=== PATIENT | female | born 1990 | race Caucasian/White ===

== ENCOUNTER → 2022-07-03 15:30 | Outpatient (CLI) | payer OTHER, SELFPAY ==
--- NOTE | ~2022-07-03 | US_ITS ---
EXAMINATION: US OB <= 14 weeks fetus DATE: 07/03/2022 15:58 INDICATION: Uncertain dates during likely first trimester TECHNIQUE: Real-time pelvic ultrasound utilizing transabdominal probe was performed. The katelyn sanchez radiologist was not present for the study. COMPARISON: None. FINDINGS: The uterus measures 11.9 x 5.9 x 8.6 cm. There is a poorly visualized intrauterine gestational sac. A yolk sac and pole are identified. The crown rump length measures 3.5 cm, which correlates wit h an estimated gestational age of 10 weeks and 3 days. heart motion is identified measuring 179 beats per minute (bpm) by M-mode Doppler. The right ovary measures 3.7 x 2.2 x 3.2 cm. The left ovary is not visualized. There is no free fluid in the pelvis. IMPRESSION: 1. Single living fetus with heart rate of 179 bpm. 2. Gestational age by ultrasound of 10 weeks 3 day(s) +/- 7 day(s) with ultrasound estimated date of delivery (WAI) of 01/26/2023. Reviewed, dictated and finalized at location A. IMPRESSION: 1. Single living fetus with heart rate of 179 bpm. 2. Gestational age by ultrasound of 10 weeks 3 day(s) +/- 7 day(s) with ultras ound estimated date of delivery (WAI) of 01/26/2023.
== END ==
PROVIDERS: PCP Student in an Organized Health Care Education/Training Program; Visit Provider Advanced Practice Midwife
DX: Z36.9 Encounter for antenatal screening, unspecified (principal); Z3A.10 10 weeks gestation of pregnancy
CPT/HCPCS: 76801

== ENCOUNTER → 2022-09-14 15:15 | Outpatient (CLI) | payer OTHER, SELFPAY ==
--- NOTE | ~2022-09-14 | US_ITS ---
EXAMINATION: US OB /maternal detail DATE: 09/14/2022 16:12 INDICATION: survey TECHNIQUE: Multiple obstetric sonographic images performed. FINDINGS: No prior studies for comparison. There is a single living fetus in vertex presentation. The placenta is posterior without placenta pr evia. Placental margin to the cervix is 6.7 cm. Amniotic fluid volume is subjectively normal. cardiac activity and movement is noted with a heart rate of 149 beats per minute. The following anatomy was identified as normal: 3 vessel cord cord insertion kidneys urinary bladder stomach spine diaphragm ventricles The ventricles, cerebellum, nuchal fold, upper lip and four-chamber heart are not adequately visualiz ed. The following biometric data were obtained: BPD: 48mm corresponds to gestational age 20 weeks 4 days. Head circumference: 179 mm corresponds to gestational age 20 weeks 2 days. Abdominal circumference: 158 mm corresponds to gestational age 20 weeks 6 days. Femur length: 30 mm corresponds to gestational age 19 weeks 3 days. Head circumference to abdominal circumference ratio: 1.13 (normal range for expected gestational age is 1.07-1.25). Estimated weight: 341 grams +/- 51 grams using Hadlock method, 16.5%. IMPRESSION: 1: Single living intrauterine with an estimated gestational age of 20weeks 6days by initial ultrasound measurements, with an EDC of 01/26/2023 in vertex presentation. 2. Unremarkable limited survey. Recommend follow-up examination for evaluation of the ventricl es, cerebellum, nuchal fold, upper lip and four-chamber heart. Reviewed, dictated and finalized at location A. NESS ASSISTANT IMPRESSION: 1: Single living intrauterine with an estimated gestational age of 20 weeks 6days by initial ultrasound measurements, with an EDC of 01/26/2023 in delvin ebonie presentation. 2. Unremarkable limited survey. Recommend follow-up examination for eval uation of the ventricles, cerebellum, nuchal fold, upper lip and four-chamber h eart.
== END ==
PROVIDERS: PCP Student in an Organized Health Care Education/Training Program; Visit Provider Advanced Practice Midwife
DX: Z36.9 Encounter for antenatal screening, unspecified (principal); Z3A.20 20 weeks gestation of pregnancy
CPT/HCPCS: 76805

== ENCOUNTER → 2022-10-12 15:21 | Outpatient (CLI) | payer OTHER, SELFPAY ==
--- NOTE | ~2022-10-12 | US_ITS ---
EXAMINATION: US OB follow up DATE: 10/12/2022 16:06 INDICATION: survey follow-up. Size greater than dates. TECHNIQUE: Real-time transabdominal obstetric ultrasound. FINDINGS: Comparison to multiple prior studies sequentially, with oldest reviewed study dated 022. There is a single living fetus in vertex presentation. The placenta is posterior without placenta pr evia. Placental margin is 7.8 cm to the cervix. cardiac activity and movement is noted with a heart rate of 150 beats per minute. T he amniotic fluid volume is subjectively normal. Limited survey demonstrates normal intracranial stru ctures, nuchal fold, upper lip and four-chamber heart. The following biometric data were obtained: BPD: 62mm corresponds to gestational age 25 weeks 2 days. Head circumference: 230mm corresponds to gestational age 25 weeks 0 days. Abdominal circumference: 196mm corresponds to gestational age 24 weeks 2 days. Femur length: 41mm corresponds to gestational age 23 weeks 3 days. Estimated weight: 657grams +/- 99grams, 12.9%. IMPRESSION: 1. Single living fetus in presentation with an estimated gestational age of 24 weeks 6 days by init itial ultrasound. EDC by initial ultrasound is 01/26/2023. 2. Normal limited survey. Reviewed, dictated and finalized at location A. UNITY MARKETING MANAGER IMPRESSION: 1. Single living fetus in presentation with an estimated gestational age of 2 4 weeks 6 days by inititial ultrasound. EDC by initial ultrasound is 01/26/2023. 2. Normal limited survey.
== END ==
PROVIDERS: PCP Student in an Organized Health Care Education/Training Program; Visit Provider Obstetrics & Gynecology Gynecology
DX: O36.63X0 Maternal care for excessive fetal growth, third trimester, not applicable or unspecified (principal); Z3A.00 Weeks of gestation of pregnancy not specified
CPT/HCPCS: 76816

== ENCOUNTER 2022-11-07 13:16 | Outpatient (RCR) | payer OTHER, SELFPAY ==
[2022-11-07 14:32] LABS: Basophils Percent Auto 0.1 % (0.2-1.2); Eosinophils Percent Auto 0.5 % (0-4.4); Hematocrit 36.3 % (37.0-47.0); Hemoglobin 11.7 g/dL (12.0-15.0); Immature Granulocyte Absolute 0.03 K/mm3 (0.00-0.031); Immature Granulocyte Percent A 0.4 % (0-0.5); Lymphocytes Absolute Auto 1.38 K/mm3 (0.9-3.2); Lymphocytes Percent Auto 16.4 % (18.3-44.2); Mean Corpuscular HGB Conc 32.2 g/dl (32-36); Mean Corpuscular Volume 90.1 fl (80-100); Mean Platelet Volume 10.2 fl (7.4-10.4); Monocytes Absolute Auto 0.4 K/mm3 (0.1-0.6); Monocytes Percent Auto 4.2 % (2.6-8.5); Neutrophils Absolute Auto 6.6 K/mm3 (1.3-6.7); Neutrophils Percent Auto 78.4 % (45.5-73.1); Platelet Count Result 146 k/mm3 (150-375); Red Blood Count 4.03 M/mm3 (4.2-5.4); Red Cell Distribution Width 14.1 % (11.5-14.5); White Blood Count 8.4 K/mm3 (4.5-10.0)
[2022-11-07 14:42] LABS: Alanine Aminotransferase 16 U/L (6-35); Albumin Level 3.3 g/dL (3.5-5.1); Alkaline Phosphatase 78 U/L (38-126); Anion Gap 2 mmol/L (8-16); Aspartate Amino Transferase 15 U/L (14-36); Bilirubin,Total 0.3 mg/dL (0.2-1.3); Blood Urea Nitrogen 4 mg/dL (7-17); Calcium 8.3 mg/dL (8.4-10.2); Carbon Dioxide 27 mmol/L (22-30); Chloride 104 mmol/L (98-107); Estimated Glomerular Filt Rate > 60; Glucose 139 mg/dL (65-110); Potassium 3.9 mmol/L (3.4-5.0); Sodium 133 mmol/L (137-145); Uric Acid 2.4 mg/dL (2.5-7.5)
[2022-11-07 14:45] LABS: Creatinine Urine 155.5 mg/dL; Total Protein Urine Random 13 mg/dL; Ur Ttl Prot Creatinine Ratio 0.08 mg/mg (0-0.20)
[2022-11-07 14:50] VITALS: BP 139/84; PULSE 90
--- NOTE | 2022-11-07 14:59 | PM.OBTRLD ---
OB - Triage/Final Diagnosis Visit Information Date of evaluation: 11/07/22 Reason for evaluation: decreased movement Comments/Additional reasons for admission: I have assessed the risk for this patient, Estefania Navarro, and determined that she would benefit from observation care. Pt had 2 mild range BPs followed by 3 normal range BPs. Preeclamsia labs WNL. Continue checking BPs 2 x day at home and continue preeclampsia precautions. Evaluation Laboratory results: Laboratory Tests 11/07/22 11/07/22 11/07/22 14:19 14:19 14:19 WBC 8.4 RBC 4.03 L Hgb 11.7 L Hct 36.3 L MCV 90.1 MCH 29.0 MCHC 32.2 RDW 14.1 Plt Count 146 L MPV 10.2 Immature Gran % (Auto) 0.4 Neut % (Auto) 78.4 H Lymph % (Auto) 16.4 L [place] % (Auto) 4.2 Eos % (Auto) 0.5 Baso % (Auto) 0.1 L Lymph # (Auto) 1.38 [place] # (Auto) 0.4 Eos # (Auto) 0.0 Baso # (Auto) 0.0 Abs Immat Gran (auto) 0.03 Absolute Neuts (auto) 6.6 Absolute Nucleated RBC 0.0 Nucleated RBC % 0.0 Sodium 133 L Potassium 3.9 Chloride 104 Carbon Dioxide 27 Anion Gap 2 L BUN 4 L Creatinine 0.40 L Estim Creat Clear Calc Not Reportable Estimated GFR > 60 Glucose 139 H Uric Acid 2.4 L Calcium 8.3 L Total Bilirubin 0.3 AST 15 ALT 16 Alkaline Phosphatase 78 Total Protein 6.0 L Albumin 3.3 L U Random Total Protein 13 Urine Creatinine 155.5
== END 2023-01-26 15:06 | disposition home or self-care (01) ==
LOC: ANHOBOP 13:16
PROVIDERS: Advanced Practice Midwife; PCP Student in an Organized Health Care Education/Training Program; Visit Provider Obstetrics & Gynecology
DX: O36.8120 Decreased fetal movements, second trimester, not applicable or unspecified (principal); Z3A.27 27 weeks gestation of pregnancy
CPT/HCPCS: 36415; 59025; 80053; 82570; 84156; 84550; 85025

== ENCOUNTER → 2022-12-08 12:54 | Outpatient (CLI) | payer OTHER, SELFPAY ==
--- NOTE | ~2022-12-08 | US_ITS ---
EXAMINATION: US OB follow up DATE: 12/08/2022 13:25 INDICATION: Size greater than dates during third trimester TECHNIQUE: Real-time ultrasound of the pelvis was performed. The interpreting radiologist was not pre sent for the study. COMPARISON: 10/12/2022 FINDINGS: There is a single living fetus in vertex presentation. The placenta is posterior and 7.5 cm from the internal cervical os. cardiac activity and movement are noted. heart rate is 133 beats per minute (bpm). The amniotic fluid index is 10.4 cm which is normal (normal range: 8. 3 cm to 24.5 cm). The following biometric data were obtained: Biparietal diameter (BPD): 8.7 cm; head circumference (HC): 31.3 cm; abdominal circumference (AC): 29 .0 cm; femur length (FL): 6.2 cm. These measurements are concordant. Estimated weight is 2122 g +/- 318 g, which correlates with the 44th percentile when 01/26/2023 is used as estimated date of delivery. As single measurements, these parameters are each equal to the following estimated gestational ages w ith ranges of +/- 2 standard deviations: BPD: 35 weeks 0 days ( 31 weeks 6 days - 38 weeks 0 days). HC: 35 weeks 1 days ( 32 weeks 1 days - 38 weeks 0 days). AC: 33 weeks 0 days ( 30 weeks 1 days - 36 weeks 0 days). FL: 32 weeks 0 days ( 29 weeks 0 days - 35 weeks 0 days). estimated gestational age based solely on measurements from this exam is 33 weeks 6 days +/- 2 weeks 3 days. IMPRESSION: 1. Single living fetus in vertex presentation. 2. Normal amniotic fluid index. 3. Estimated weight is 2122 g +/- 318 g, which correlates with the 44th percentile when 01/27/20 23 is used as estimated date of delivery. Reviewed, dictated and finalized at location F. COM ENGINEER IMPRESSION: 1. Single living fetus in vertex presentation. 2. Normal amniotic fluid index. 3. Estimated weight is 2122 g +/- 318 g, which correlates with the 44th p ercentile when 01/26/2023 is used as estimated date of delivery.
== END ==
PROVIDERS: PCP Student in an Organized Health Care Education/Training Program; Visit Provider Obstetrics & Gynecology Gynecology
DX: O36.63X0 Maternal care for excessive fetal growth, third trimester, not applicable or unspecified (principal); Z3A.33 33 weeks gestation of pregnancy
CPT/HCPCS: 76816

== ENCOUNTER → 2022-12-28 15:32 | Outpatient (CLI) | payer OTHER, SELFPAY ==
--- NOTE | ~2022-12-28 | US_ITS ---
EXAMINATION: US OB follow up DATE: 12/28/2022 15:54 INDICATION: Size greater than dates during third trimester TECHNIQUE: Real-time ultrasound of the pelvis was performed. The interpreting radiologist was not pre sent for the study. COMPARISON: 12/08/2022 FINDINGS: There is a single living fetus in vertex presentation. The placenta is posterior. car diac activity and movement are noted. heart rate is 114 beats per minute (bpm). The amnio tic fluid index is 15.5 cm which is normal (normal range: 7.9 cm to 24.9 cm). The following biometric data were obtained: Biparietal diameter (BPD): 8.9 cm; head circumference (HC): 32.0 cm; abdominal circumference (AC): 31 .4 cm; femur length (FL): 6.8 cm. These measurements are concordant. Estimated weight is 2687 g +/- 402 g, which correlates with the 39th percentile when 01/26/2023 is used as estimated date of delivery. As single measurements, these parameters are each equal to the following estimated gestational ages w ith ranges of +/- 2 standard deviations: BPD: 36 weeks 2 days ( 33 weeks 1 days - 39 weeks 3 days). HC: 36 weeks 1 days ( 33 weeks 3 days - 38 weeks 6 days). AC: 35 weeks 3 days ( 32 weeks 3 days - 38 weeks 2 days). FL: 35 weeks 1 days ( 32 weeks 1 days - 38 weeks 0 days). estimated gestational age based solely on measurements from this exam is 35 weeks 5 days +/- 2 weeks 4 days. IMPRESSION: 1. Single living fetus in vertex presentation. 2. Normal amniotic fluid index. 3. Estimated weight is 2687 g +/- 402 g, which correlates with the 39th percentile when 01/27/20 23 is used as estimated date of delivery. Reviewed, dictated and finalized at location B. IMPRESSION: 1. Single living fetus in vertex presentation. 2. Normal amniotic fluid index. 3. Estimated weight is 2687 g +/- 402 g, which correlates with the 39th p ercentile when 01/26/2023 is used as estimated date of delivery.
== END ==
PROVIDERS: PCP Student in an Organized Health Care Education/Training Program; Visit Provider Obstetrics & Gynecology Gynecology
DX: O36.63X0 Maternal care for excessive fetal growth, third trimester, not applicable or unspecified (principal); Z3A.35 35 weeks gestation of pregnancy
CPT/HCPCS: 76816

== ENCOUNTER 2023-01-05 11:55 | Outpatient (CLI) | payer OTHER, SELFPAY ==
[2023-01-05 12:28] LABS: Basophils Percent Auto 0.2 % (0.2-1.2); Eosinophils Percent Auto 0.4 % (0-4.4); Hematocrit 40.5 % (37.0-47.0); Hemoglobin 13.3 g/dL (12.0-15.0); Immature Granulocyte Absolute 0.03 K/mm3 (0.00-0.031); Immature Granulocyte Percent A 0.3 % (0-0.5); Lymphocytes Absolute Auto 1.68 K/mm3 (0.9-3.2); Lymphocytes Percent Auto 16.7 % (18.3-44.2); Mean Corpuscular HGB Conc 32.8 g/dl (32-36); Mean Corpuscular Hemoglobin 29.8 pg (26-34); Mean Corpuscular Volume 90.8 fl (80-100); Mean Platelet Volume 11.1 fl (7.4-10.4); Monocytes Absolute Auto 0.4 K/mm3 (0.1-0.6); Monocytes Percent Auto 4.2 % (2.6-8.5); Neutrophils Absolute Auto 7.9 K/mm3 (1.3-6.7); Neutrophils Percent Auto 78.2 % (45.5-73.1); Platelet Count Result 177 k/mm3 (150-375); Red Blood Count 4.46 M/mm3 (4.2-5.4); Red Cell Distribution Width 13.9 % (11.5-14.5); White Blood Count 10.1 K/mm3 (4.5-10.0)
[2023-01-05 12:30] VITALS: BP 135/88; PULSE 80
[2023-01-05 12:34] LABS: Appearance Urine Cloudy (Clear); Bacteria Urine 4+ /hpf; Bilirubin Urine Negative (Negative); Blood Urine Negative (Negative); Color Urine Dark Yellow (Yellow); Creatinine Urine 155.5 mg/dL; Glucose Urine UA Negative (Negative); Ketones Urine 1+ mg/dL (Negative); Leukocyte Esterase Ur 1+ LEU/UL (NEGATIVE); Nitrate Urine Negative (Negative); Protein Urine Trace mg/dL (Negative); RBC Urine 0-2 /hpf (0-2); Specific Grav Ur 1.018 (1.001-1.035); Squamous Epithelial Cell Urine Few /hpf (Few); Total Protein Urine Random 10 mg/dL; Ur Ttl Prot Creatinine Ratio 0.06 mg/mg (0-0.20); WBC Urine 21-50 /hpf (0-3); pH Urine 7.5 (5.0-9.0)
[2023-01-05 12:38] LABS: Alanine Aminotransferase 26 U/L (6-35); Albumin Level 3.5 g/dL (3.5-5.1); Alkaline Phosphatase 179 U/L (38-126); Anion Gap 7 mmol/L (8-16); Aspartate Amino Transferase 24 U/L (14-36); Bilirubin,Total 0.5 mg/dL (0.2-1.3); Blood Urea Nitrogen 5 mg/dL (7-17); Calcium 8.9 mg/dL (8.4-10.2); Carbon Dioxide 22 mmol/L (22-30); Chloride 104 mmol/L (98-107); Estimated Glomerular Filt Rate > 60; Glucose 75 mg/dL (65-110); Potassium 3.9 mmol/L (3.4-5.0); Sodium 133 mmol/L (137-145); Uric Acid 4.1 mg/dL (2.5-7.5)
[2023-01-05 12:42] LABS: Add Urine Microscopic? YES
[2023-01-05 12:45] VITALS: BP 145/93; PULSE 81
[2023-01-05 13:00] VITALS: BP 152/101; PULSE 85
[2023-01-05 13:03] VITALS: BP 141/89; PULSE 82
[2023-01-05 13:20] VITALS: BP 135/88; PULSE 80
[2023-01-06 12:54] VITALS: BMI 39.9
== END 2023-01-05 13:30 | disposition home or self-care (01) ==
LOC: ANHOBOP 12:00 → ANHOBPP 12:04
PROVIDERS: PCP Student in an Organized Health Care Education/Training Program; Visit Provider Obstetrics & Gynecology Gynecology
DX: O13.9 Gestational [pregnancy-induced] hypertension without significant proteinuria, unspecified trimester (principal); Z3A.00 Weeks of gestation of pregnancy not specified
CPT/HCPCS: 36415; 59025; 80053; 81001; 81050; 82570; 82575; 84156; 84550; 85025; 87086; 99199

== ENCOUNTER 2023-01-06 12:50 | Outpatient (NON) | payer OTHER, SELFPAY ==
[2023-01-06 13:35] LABS: Collection Time Urine 24 HOURS
[2023-01-06 13:36] LABS: Patient Weight 218 Lbs; Total Volume 24 Hour Urine 750 ml
[2023-01-06 14:17] LABS: Creatinine Urine 150.4 mg/dL; Total Protein Urine 24 Hr 142 mg/24hr (28-141); Total Protein Urine Random 19 mg/dL
[2023-01-06 14:25] LABS: Creatinine Clearance Urine 137.2 ml/min (75-125); Serum Creat 0.5
== END 2023-01-06 12:51 | disposition home or self-care (01) ==
LOC: ANHOBOP 13:24
PROVIDERS: PCP Student in an Organized Health Care Education/Training Program; Visit Provider Obstetrics & Gynecology Gynecology
DX: Z34.90 Encounter for supervision of normal pregnancy, unspecified, unspecified trimester (principal); Z3A.00 Weeks of gestation of pregnancy not specified
CPT/HCPCS: 81050; 82575; 84156

== ENCOUNTER 2023-01-09 17:50 | Inpatient (IN) | payer OTHER, SELFPAY ==
[2023-01-09] VITALS (14 sets, daily range): BP systolic 143–164; BP diastolic 89–108; PULSE 79–95; TEMP 36.4; O2SAT 97–99
--- NOTE | ~2023-01-09 | US_ITS ---
EXAMINATION: US OB follow up, US umbilical doppler DATE: 01/10/2023 07:44 INDICATION: cardiac decelerations. Assess growth and umbilical Dopplers. Estimate w eight TECHNIQUE: Real-time ultrasound of the pelvis was performed. The interpreting radiologist was not pre sent for the study. COMPARISON: 12/28/2022 FINDINGS: There is a single living fetus in vertex presentation. The placenta is posterior. heart rate i s 142 beats per minute (bpm). The amniotic fluid index is 8.2 cm, which is normal (5th%-95%: 7.5-24. 4 cm at 37 weeks estimated gestational age). The following biometric data were obtained: BPD: 9.0 cm -> 36 weeks 2 days Head circumference: 32.7 cm -> 37 weeks 1 days Abdominal circumference: 33.3 cm -> 37 weeks 2 days Femur length: 6.9 cm -> 35 weeks 3 days These measurements are concordant. Head circumference to abdominal circumference ratio: 0.98 (normal range 0.92-1.06). Estimated weight: 2996 g (+/-) 449 g or 6 lbs. 10 oz. (+/-) 1 lbs. 0 oz. The umbilical artery demonstrates a peak systolic and diastolic velocity ratio of 2.4-2.7 at the fetu s, 2.0-2.1 in the mid cord and 2.1-2.3 near the placenta (5th%-95%: 1.94-3.18 at 37 weeks). IMPRESSION: 1. Single living fetus in vertex presentation with heart rate of 142 bpm. 2. Normal amniotic fluid index of 8.2 cm. 3. Estimated weight is 33rd percentile by Hadlock criteria when 01/26/2023 is used as the estima kevyn date of delivery (WAI). Please correlate with clinical information or earlier ultrasounds for mos t accurate WAI. 3. Mean umbilical arterial Doppler systolic to diastolic velocity ratio of 2.3 which is within normal limits. Reviewed, dictated and finalized at location A. IMPRESSION: 1. Single living fetus in vertex presentation with heart rate of 142 bpm. 2. Normal amniotic fluid index of 8.2 cm. 3. Estimated weight is 33rd percentile by Hadlock criteria when 01/26/2023 is used as the estimated date of delivery (WAI). Please correlate with clinica l information or earlier ultrasounds for most accurate WAI. 3. Mean umbilical arterial Doppler systolic to diastolic velocity ratio of 2.3 which is within normal limits.
[2023-01-09 17:08] LABS: Appearance Urine Cloudy (Clear); Bacteria Urine None Seen /hpf; Bilirubin Urine Negative (Negative); Blood Urine Negative (Negative); Color Urine Yellow (Yellow); Glucose Urine UA Negative (Negative); Ketones Urine Negative (Negative); Leukocyte Esterase Ur Negative LEU/UL (NEGATIVE); Nitrate Urine Negative (Negative); Non Pathogenic Casts 0-2; Protein Urine Negative (Negative); RBC Urine 0-2 /hpf (0-2); Specific Grav Ur 1.013 (1.001-1.035); Squamous Epithelial Cell Urine None seen /hpf (Few); Urobilinogen Urine 0.2 mg/dL (<2.0); WBC Urine 0-5 /hpf (0-3); pH Urine 7.5 (5.0-9.0)
[2023-01-09 17:09] LABS: Add Urine Microscopic? YES
[2023-01-09 17:10] LABS: Basophils Percent Auto 0.2 % (0.2-1.2); Eosinophils Percent Auto 0.4 % (0-4.4); Hematocrit 39.8 % (37.0-47.0); Hemoglobin 13.2 g/dL (12.0-15.0); Immature Granulocyte Absolute 0.05 K/mm3 (0.00-0.031); Immature Granulocyte Percent A 0.5 % (0-0.5); Lymphocytes Absolute Auto 1.66 K/mm3 (0.9-3.2); Lymphocytes Percent Auto 16.3 % (18.3-44.2); Mean Corpuscular HGB Conc 33.2 g/dl (32-36); Mean Corpuscular Hemoglobin 30.1 pg (26-34); Mean Corpuscular Volume 90.7 fl (80-100); Mean Platelet Volume 11.3 fl (7.4-10.4); Monocytes Absolute Auto 0.5 K/mm3 (0.1-0.6); Monocytes Percent Auto 4.7 % (2.6-8.5); Neutrophils Absolute Auto 7.9 K/mm3 (1.3-6.7); Neutrophils Percent Auto 77.9 % (45.5-73.1); Platelet Count Result 172 k/mm3 (150-375); Red Blood Count 4.39 M/mm3 (4.2-5.4); Red Cell Distribution Width 13.9 % (11.5-14.5); White Blood Count 10.2 K/mm3 (4.5-10.0)
[2023-01-09 17:11] LABS: Alanine Aminotransferase 27 U/L (6-35); Albumin Level 3.5 g/dL (3.5-5.1); Alkaline Phosphatase 174 U/L (38-126); Anion Gap 4 mmol/L (8-16); Aspartate Amino Transferase 27 U/L (14-36); Bilirubin,Total 0.5 mg/dL (0.2-1.3); Blood Urea Nitrogen 7 mg/dL (7-17); Calcium 8.8 mg/dL (8.4-10.2); Carbon Dioxide 22 mmol/L (22-30); Chloride 106 mmol/L (98-107); Estimated Glomerular Filt Rate > 60; Glucose 74 mg/dL (65-110); Potassium 3.9 mmol/L (3.4-5.0); Sodium 132 mmol/L (137-145); Uric Acid 4.1 mg/dL (2.5-7.5)
[2023-01-09 17:34] LABS: Creatinine Urine 83.9 mg/dL; Total Protein Urine Random 11 mg/dL; Ur Ttl Prot Creatinine Ratio 0.13 mg/mg (0-0.20)
[2023-01-09] MEDS: NIFEdipine 30 MG TAB.ER.24 PO (18:13)
[2023-01-10] VITALS (46 sets, daily range): BP systolic 132–173; BP diastolic 81–110; PULSE 78–151; RESP 16–18; TEMP 36.6–36.7; O2SAT 87–100; BMI 39.5
--- NOTE | 2023-01-10 07:34 | PM.OBPNVD ---
OB - PN: Subj Subjective Date/time seen: 01/10/23 07:34 Interval history: pt in ultrasound at this time. OB - PN: Obj Data Labs 01/09/23 16:51 01/09/23 16:51 Labs: Laboratory Results - last 24 hr 01/09/23 01/09/23 01/09/23 16:51 16:51 16:51 WBC 10.2 H RBC 4.39 Hgb 13.2 Hct 39.8 MCV 90.7 MCH 30.1 MCHC 33.2 RDW 13.9 Plt Count 172 MPV 11.3 H Immature Gran % (Auto) 0.5 Neut % (Auto) 77.9 H Lymph % (Auto) 16.3 L [place] % (Auto) 4.7 Eos % (Auto) 0.4 Baso % (Auto) 0.2 Lymph # (Auto) 1.66 [place] # (Auto) 0.5 Eos # (Auto) 0.0 Baso # (Auto) 0.0 Abs Immat Gran (auto) 0.05 H Absolute Neuts (auto) 7.9 H Absolute Nucleated RBC 0.0 Nucleated RBC % 0.0 Sodium Potassium Chloride Carbon Dioxide Anion Gap BUN Creatinine Estim Creat Clear Calc Estimated GFR Glucose Uric Acid Calcium Total Bilirubin AST ALT Alkaline Phosphatase Total Protein Albumin Urine Color Yellow Urine Appearance Cloudy H Urine pH 7.5 Ur Specific [place] 1.013 Urine Protein Negative Urine Glucose (UA) Negative Urine Ketones Negative Ur Blood (Man) Negative Urine Nitrate Negative Urine Bilirubin Negative Urine Urobilinogen 0.2 Ur Leukocyte Esterase Negative Urine RBC 0-2 Urine WBC 0-5 Ur Squamous Epith Cells None seen Urine Bacteria None seen Urine Casts 0-2 U Random Total Protein 11 Urine Creatinine 83.9 Protein/Creat Ratio 2 0.13 01/09/23 16:51 WBC RBC Hgb Hct MCV MCH MCHC RDW Plt Count MPV Immature Gran % (Auto) Neut % (Auto) Lymph % (Auto) [place] % (Auto) Eos % (Auto) Baso % (Auto) Lymph # (Auto) [place] # (Auto) Eos # (Auto) Baso # (Auto) Abs Immat Gran (auto) Absolute Neuts (auto) Absolute Nucleated RBC Nucleated RBC % Sodium 132 L Potassium 3.9 Chloride 106 Carbon Dioxide 22 Anion Gap 4 L BUN 7 Creatinine 0.60 L Estim Creat Clear Calc Not Reportable Estimated GFR > 60 Glucose 74 Uric Acid 4.1 Calcium 8.8 Total Bilirubin 0.5 AST 27 ALT 27 Alkaline Phosphatase 174 H Total Protein 7.0 Albumin 3.5 Urine Color Urine Appearance Urine pH Ur Specific [place] Urine Protein Urine Glucose (UA) Urine Ketones Ur Blood (Man) Urine Nitrate Urine Bilirubin Urine Urobilinogen Ur Leukocyte Esterase Urine RBC Urine WBC Ur Squamous Epith Cells Urine Bacteria Urine Casts U Random Total Protein Urine Creatinine Protein/Creat Ratio 2 OB - PN A/P Time Spent With Patient Time: Total time spent is greater than 50% in coordination of care (as documented) at patient's floor/unit and/or counseling patient:
--- NOTE | 2023-01-10 08:01 | PM.OBPNVD ---
OB - PN: Subj Subjective Date/time seen: 01/10/23 0745 Interval history: pt back from US. Resting in bed. She denies HERRERA, visual changes, RUQ pain, or change in edema. Patient comments: no complaints OB - PN: Obj Data Labs 01/09/23 16:51 01/09/23 16:51 Labs: Laboratory Results - last 24 hr 01/09/23 01/09/23 01/09/23 16:51 16:51 16:51 WBC 10.2 H RBC 4.39 Hgb 13.2 Hct 39.8 MCV 90.7 MCH 30.1 MCHC 33.2 RDW 13.9 Plt Count 172 MPV 11.3 H Immature Gran % (Auto) 0.5 Neut % (Auto) 77.9 H Lymph % (Auto) 16.3 L [place] % (Auto) 4.7 Eos % (Auto) 0.4 Baso % (Auto) 0.2 Lymph # (Auto) 1.66 [place] # (Auto) 0.5 Eos # (Auto) 0.0 Baso # (Auto) 0.0 Abs Immat Gran (auto) 0.05 H Absolute Neuts (auto) 7.9 H Absolute Nucleated RBC 0.0 Nucleated RBC % 0.0 Sodium Potassium Chloride Carbon Dioxide Anion Gap BUN Creatinine Estim Creat Clear Calc Estimated GFR Glucose Uric Acid Calcium Total Bilirubin AST ALT Alkaline Phosphatase Total Protein Albumin Urine Color Yellow Urine Appearance Cloudy H Urine pH 7.5 Ur Specific [place] 1.013 Urine Protein Negative Urine Glucose (UA) Negative Urine Ketones Negative Ur Blood (Man) Negative Urine Nitrate Negative Urine Bilirubin Negative Urine Urobilinogen 0.2 Ur Leukocyte Esterase Negative Urine RBC 0-2 Urine WBC 0-5 Ur Squamous Epith Cells None seen Urine Bacteria None seen Urine Casts 0-2 U Random Total Protein 11 Urine Creatinine 83.9 Protein/Creat Ratio 2 0.13 01/09/23 16:51 WBC RBC Hgb Hct MCV MCH MCHC RDW Plt Count MPV Immature Gran % (Auto) Neut % (Auto) Lymph % (Auto) [place] % (Auto) Eos % (Auto) Baso % (Auto) Lymph # (Auto) [place] # (Auto) Eos # (Auto) Baso # (Auto) Abs Immat Gran (auto) Absolute Neuts (auto) Absolute Nucleated RBC Nucleated RBC % Sodium 132 L Potassium 3.9 Chloride 106 Carbon Dioxide 22 Anion Gap 4 L BUN 7 Creatinine 0.60 L Estim Creat Clear Calc Not Reportable Estimated GFR > 60 Glucose 74 Uric Acid 4.1 Calcium 8.8 Total Bilirubin 0.5 AST 27 ALT 27 Alkaline Phosphatase 174 H Total Protein 7.0 Albumin 3.5 Urine Color Urine Appearance Urine pH Ur Specific [place] Urine Protein Urine Glucose (UA) Urine Ketones Ur Blood (Man) Urine Nitrate Urine Bilirubin Urine Urobilinogen Ur Leukocyte Esterase Urine RBC Urine WBC Ur Squamous Epith Cells Urine Bacteria Urine Casts U Random Total Protein Urine Creatinine Protein/Creat Ratio 2 OB - PN A/P Assessment and Plan (1) Elevated blood pressure affecting in third trimester, antepartum: Code(s): O16.3 - Unspecified maternal hypertension, third trimester Status: Acute Assessment and Plan: neg proteinuria but 24 hour urine pending. no severe ranges. plan BPs q 4 while awake repeat CBC, CMP pending. FHT baseline 125 (135 at times), mod variability, +accels. CAT1 Time Spent With Patient Time: Total time spent is greater than 50% in coordination of care (as documented) at patient's floor/unit and/or counseling patient: Review of Systems Review of Systems: All systems reviewed & are unremarkable except as noted in HPI and below Exam Const: General: cooperative, healthy appearing, comfortable and alert Orientation/consciousness: patient oriented x3 Limitations: no limitations HENMT: Head: normal to inspection Chest: Chest palpation & inspection: normal inspection of the chest Resp: Effort & Inspection: normal respiratory effort Auscultation: clear to auscultation bilaterally GI: Inspection: normal to inspection Skin: General skin exam: normal color Extrem: General: edema (1+ to BLE, 2+ reflexes, neg clonus) Psych: Appearance: grossly normal Mental
[2023-01-10 08:20] LABS: Hematocrit 40.7 % (37.0-47.0); Hemoglobin 13.4 g/dL (12.0-15.0); Mean Corpuscular HGB Conc 32.9 g/dl (32-36); Mean Corpuscular Hemoglobin 29.8 pg (26-34); Mean Corpuscular Volume 90.4 fl (80-100); Mean Platelet Volume 11.1 fl (7.4-10.4); Platelet Count Result 174 k/mm3 (150-375); Red Cell Distribution Width 14.1 % (11.5-14.5); White Blood Count 9.5 K/mm3 (4.5-10.0)
[2023-01-10 08:29] LABS: Alanine Aminotransferase 27 U/L (6-35); Albumin Level 3.5 g/dL (3.5-5.1); Alkaline Phosphatase 181 U/L (38-126); Anion Gap 4 mmol/L (8-16); Aspartate Amino Transferase 26 U/L (14-36); Bilirubin,Total 0.5 mg/dL (0.2-1.3); Blood Urea Nitrogen 5 mg/dL (7-17); Calcium 8.6 mg/dL (8.4-10.2); Carbon Dioxide 24 mmol/L (22-30); Chloride 106 mmol/L (98-107); Estimated Glomerular Filt Rate > 60; Glucose 75 mg/dL (65-110); Potassium 3.8 mmol/L (3.4-5.0); Sodium 134 mmol/L (137-145)
--- NOTE | 2023-01-10 09:10 | PC.NURSE ---
called Humaira Spring CNM and reported LAb Result and BP. continue monitor BP every 2 hours. finish 24 hour urine.
[2023-01-10] MEDS: LABETALOL HCL INJ 100 MG/20 ML VIAL 20 MG IV PUSH (16:10)
[2023-01-10 17:09] LABS: Basophils Percent Auto 0.1 % (0.2-1.2); Eosinophils Percent Auto 0.4 % (0-4.4); Hematocrit 38.3 % (37.0-47.0); Hemoglobin 12.7 g/dL (12.0-15.0); Immature Granulocyte Absolute 0.02 K/mm3 (0.00-0.031); Immature Granulocyte Percent A 0.2 % (0-0.5); Lymphocytes Absolute Auto 1.85 K/mm3 (0.9-3.2); Lymphocytes Percent Auto 20.1 % (18.3-44.2); Mean Corpuscular HGB Conc 33.2 g/dl (32-36); Mean Corpuscular Hemoglobin 29.9 pg (26-34); Mean Corpuscular Volume 90.1 fl (80-100); Mean Platelet Volume 10.9 fl (7.4-10.4); Monocytes Absolute Auto 0.4 K/mm3 (0.1-0.6); Neutrophils Absolute Auto 6.9 K/mm3 (1.3-6.7); Neutrophils Percent Auto 75.2 % (45.5-73.1); Platelet Count Result 161 k/mm3 (150-375); Red Blood Count 4.25 M/mm3 (4.2-5.4); White Blood Count 9.2 K/mm3 (4.5-10.0)
--- NOTE | 2023-01-10 17:14 | PM.OBPNVD ---
OB - PN: Subj Subjective Date/time seen: 01/10/23 17:05 Interval history: Resting in bed. She denies HERRERA, visual changes, RUQ pain, or change in edema. Patient comments: no complaints OB - PN: Obj Data Labs 01/10/23 16:51 01/10/23 08:11 Labs: Laboratory Results - last 24 hr 01/09/23 01/10/23 01/10/23 16:51 08:11 08:11 WBC 9.5 RBC 4.50 Hgb 13.4 Hct 40.7 MCV 90.4 MCH 29.8 MCHC 32.9 RDW 14.1 Plt Count 174 MPV 11.1 H Immature Gran % (Auto) Neut % (Auto) Lymph % (Auto) [place] % (Auto) Eos % (Auto) Baso % (Auto) Lymph # (Auto) [place] # (Auto) Eos # (Auto) Baso # (Auto) Abs Immat Gran (auto) Absolute Neuts (auto) Absolute Nucleated RBC Nucleated RBC % Sodium 134 L Potassium 3.8 Chloride 106 Carbon Dioxide 24 Anion Gap 4 L BUN 5 L Creatinine 0.50 L Estim Creat Clear Calc Not Reportable Estimated GFR > 60 Glucose 75 Calcium 8.6 Total Bilirubin 0.5 AST 26 ALT 27 Alkaline Phosphatase 181 H Total Protein 7.0 Albumin 3.5 U Random Total Protein 11 Urine Creatinine 83.9 Protein/Creat Ratio 2 0.13 01/10/23 16:51 WBC 9.2 RBC 4.25 Hgb 12.7 Hct 38.3 MCV 90.1 MCH 29.9 MCHC 33.2 RDW 14.0 Plt Count 161 MPV 10.9 H Immature Gran % (Auto) 0.2 Neut % (Auto) 75.2 H Lymph % (Auto) 20.1 [place] % (Auto) 4.0 Eos % (Auto) 0.4 Baso % (Auto) 0.1 L Lymph # (Auto) 1.85 [place] # (Auto) 0.4 Eos # (Auto) 0.0 Baso # (Auto) 0.0 Abs Immat Gran (auto) 0.02 Absolute Neuts (auto) 6.9 H Absolute Nucleated RBC 0.0 Nucleated RBC % 0.0 Sodium Potassium Chloride Carbon Dioxide Anion Gap BUN Creatinine Estim Creat Clear Calc Estimated GFR Glucose Calcium Total Bilirubin AST ALT Alkaline Phosphatase Total Protein Albumin U Random Total Protein Urine Creatinine Protein/Creat Ratio 2 Imaging Radiologist's impression: Impressions Doppler Study 01/10/23 07:48 IMPRESSION: 1. Single living fetus in vertex presentation with heart rate of 142 bpm. 2. Normal amniotic fluid index of 8.2 cm. 3. Estimated weight is 33rd percentile by Hadlock criteria when 01/26/2023 is used as the estimated date of delivery (WAI). Please correlate with clinical information or earlier ultrasounds for most accurate WAI. 3. Mean umbilical arterial Doppler systolic to diastolic velocity ratio of 2.3 which is within normal limits. Obstetrics Ultrasound 01/10/23 07:48 IMPRESSION: 1. Single living fetus in vertex presentation with heart rate of 142 bpm. 2. Normal amniotic fluid index of 8.2 cm. 3. Estimated weight is 33rd percentile by Hadlock criteria when 01/26/2023 is used as the estimated date of delivery (WAI). Please correlate with clinical information or earlier ultrasounds for most accurate WAI. 3. Mean umbilical arterial Doppler systolic to diastolic velocity ratio of 2.3 which is within normal limits. OB - PN A/P Assessment and Plan (1) Elevated blood pressure affecting in third trimester, antepartum: Code(s): O16.3 - Unspecified maternal hypertension, third trimester Status: Acute Assessment and Plan: -Severe range BPs requiring initiation of maternal hypertension protocol. (Received 20mg IV Labetalol x1) -Continue Procardia 30mg XL -plan BPs q 1 hour x 2, then q 2 while awake, then q 4 overnight. -Recommend monitoring with any severe BPs requiring medication. -repeat CBC, CMP from this am are stable. (24 hour urine pending) -FHT tracing reactive. Baseline 140 with moderate variability and accelerations. Time Spent With Patient Time: Total time spent is greater than 50% in coordination of care (as documented) at patient's floor/unit and/or counseling patient: Review of Systems Review of Systems: All systems reviewed & are unremarkable except as noted in
[2023-01-10 17:20] LABS: Collection Time Urine 24 HOURS; Total Volume 24 Hour Urine 1700 ml
[2023-01-10 17:21] LABS: Alanine Aminotransferase 26 U/L (6-35); Albumin Level 3.1 g/dL (3.5-5.1); Alkaline Phosphatase 167 U/L (38-126); Anion Gap 5 mmol/L (8-16); Aspartate Amino Transferase 24 U/L (14-36); Bilirubin,Total 0.4 mg/dL (0.2-1.3); Blood Urea Nitrogen 5 mg/dL (7-17); Calcium 8.3 mg/dL (8.4-10.2); Carbon Dioxide 21 mmol/L (22-30); Chloride 106 mmol/L (98-107); Estimated CRCL calculation 177 ml/min; Estimated Glomerular Filt Rate > 60; Glucose 73 mg/dL (65-110); Potassium 3.8 mmol/L (3.4-5.0); Sodium 132 mmol/L (137-145)
[2023-01-10 17:28] LABS: Creatinine Clearance Urine 144.6 ml/min (75-125); Creatinine Urine 83.6 mg/dL; Patient Weight 216 Lbs; Total Protein Urine 24 Hr 221 mg/24hr (28-141); Total Protein Urine Random 13 mg/dL
[2023-01-10] MEDS: NIFEdipine 30 MG TAB.ER.24 60 MG PO (18:43)
[2023-01-11] VITALS (251 sets, daily range): BP systolic 100–168; BP diastolic 62–108; PULSE 66–119; RESP 17–20; TEMP 36.2–36.6; O2SAT 79–100; BMI 39.9
--- NOTE | 2023-01-11 07:50 | WPDOBADMIT ---
Obstetrics - Admit Note Admission Note: record reviewed. No pertinent additions to the history and/or any subsequent changes in the physical findings that are not consistent with the expected course of the were found. Additions to the history and/or subsequent changes in the physical findings follow. Patient BP's remain diastolics 100's on Procardia XL 60 mg. No symptoms. Good FM. FHTs reactive. Cervix 1/50/-2 U/s good growth, normal fluid and dopplers A/P: 1. IUP 36 5/7 2. Gestational hypertension with worsening BP. Plan MIL now.
[2023-01-11] MEDS: LACTATED RINGERS 1,000 ML 125 ML IV CONT (09:09)
[2023-01-11] MEDS: AMPICILLIN 2 GM/NS 100 ML 2 GM/100 ML BAG IVPB (09:09)
[2023-01-11] MEDS: OXYTOCIN 30 UNITS/NS 500 ML 30 UNITS/500 ML BAG 6 UNITS IV CONT (09:28)
--- NOTE | 2023-01-11 09:28 | LDADM ---
This patient, Estefania Navarro, was changed from observation to inpatient status on 01/11/23 at 07:45. Plans for labor, pain management and were discussed with patient. Patient/family oriented to hospital policies and general routines including ID bracelet, bed and alarms, visiting hours, pain management, procedures, bathroom and other care routines, personal items, smoking policy, room service/diet and guest tray routines, infant security routines, and visiting hours. Patient/Family are encouraged to report perceived risks to care and to ask questions if they do not understand what they are told or what they should do. See OBIX for further documentation.
--- NOTE | 2023-01-11 12:17 | PM.OBPNLAB ---
Pain Control Date/time seen: 01/11/23 12:17 Pain control: tolerating well Pelvic Exam Dilation (cm): 1 Effacement (%): 50 station: -2 Amniotic membrane status: Ruptured (clear fluid) Status status: Category l Assessment and Plan Assessment: induction ongoing Plan: continuous present management
[2023-01-11] MEDS: AMPICILLIN 1 GM/NS 50 ML 1 GM/50 ML BAG IVPB ×3 (13:18→20:54)
[2023-01-11] MEDS: LABETALOL HCL INJ 100 MG/20 ML VIAL 20 MG IV PUSH (14:35)
[2023-01-11] MEDS: LACTATED RINGERS 1,000 ML 999 ML IV CONT ×3 (14:45→20:57)
[2023-01-11 15:09] LABS: Rapid Plasma Reagin Non-Reactive (NonReactive)
--- NOTE | 2023-01-11 15:20 | WPDANESEPPF ---
Anes - Initial Pre Proc Eval Date/Time: 01/11/23 15:20 Surgeon: Faina Almonte MD Pre Op Diagnosis: Elevated BP Patient Data Age: 32 Gender: F Height: 1.57 m Weight: 99 kg Last Vital Signs Temp 36.5 C 01/11/23 14:30 Pulse 90 01/11/23 15:17 Resp 20 01/11/23 12:17 BP 141/92 H 01/11/23 15:17 Pulse Ox 96 01/11/23 15:18 O2 Del Method Room Air 01/11/23 09:35 Allergies Allergy/AdvReac Type Severity Reaction Status Date / Time No Known Allergies Allergy Verified 12/27/21 15:18 Home Medications Medication Instructions Recorded Confirmed Type cholecalciferol (vitamin D3) 1,250 50,000 unit PO WEEKLY 11/04/19 01/11/23 History mcg (50,000 unit) tablet bupropion HCl 150 mg tablet,12 hr 150 mg PO DAILY 12/27/21 01/11/23 History sustained-release (Wellbutrin SR) sertraline 100 mg tablet 100 mg PO DAILY 12/27/21 01/11/23 History prenat.vits,karine,tun-dkwr-gwkqq 1 tablet PO HS 01/03/23 01/11/23 History Laboratory Tests 01/09/23 01/10/23 01/10/23 16:55 16:51 16:55 WBC 9.2 K/mm3 K/mm3 (4.5-10.0) RBC 4.25 M/mm3 M/mm3 (4.2-5.4) Hgb 12.7 g/dL g/dL (12.0-15.0) Hct 38.3 % % (37.0-47.0) MCV 90.1 fl fl (80-100) MCH 29.9 pg pg (26-34) MCHC 33.2 g/dl g/dl (32-36) RDW 14.0 % % (11.5-14.5) Plt Count 161 k/mm3 k/mm3 (150-375) MPV 10.9 fl H fl (7.4-10.4) Immature Gran % (Auto) 0.2 % % (0-0.5) Neut % (Auto) 75.2 % H % (45.5-73.1) Lymph % (Auto) 20.1 % % (18.3-44.2) [place] % (Auto) 4.0 % % (2.6-8.5) Eos % (Auto) 0.4 % % (0-4.4) Baso % (Auto) 0.1 % L % (0.2-1.2) Lymph # (Auto) 1.85 K/mm3 K/mm3 (0.9-3.2) [place] # (Auto) 0.4 K/mm3 K/mm3 (0.1-0.6) Eos # (Auto) 0.0 K/mm3 K/mm3 (0-0.3) Baso # (Auto) 0.0 K/mm3 K/mm3 (0.0-0.1) Abs Immat Gran (auto) 0.02 K/mm3 K/mm3 (0.00-0.031) Absolute Neuts (auto) 6.9 K/mm3 H K/mm3 (1.3-6.7) Absolute Nucleated RBC 0.0 K/mm3 K/mm3 (0.0-0.012) Nucleated RBC % 0.0 % % (0.0-0.2) Sodium 132 mmol/L L mmol/L (137-145) Potassium 3.8 mmol/L mmol/L (3.4-5.0) Chloride 106 mmol/L mmol/L (98-107) Carbon Dioxide 21 mmol/L L mmol/L (22-30) Anion Gap 5 mmol/L L mmol/L (8-16) BUN 5 mg/dL L mg/dL (7-17) Creatinine 0.40 mg/dL L mg/dL (0.7-1.0) Estim Creat Clear Calc 177 ml/min ml/min Estimated GFR > 60 (59 - ) Glucose 73 mg/dL mg/dL (65-110) Uric Acid 4.0 mg/dL mg/dL (2.5-7.5) Calcium 8.3 mg/dL L mg/dL (8.4-10.2) Total Bilirubin 0.4 mg/dL mg/dL (0.2-1.3) AST 24 U/L U/L (14-36) ALT 26 U/L U/L (6-35) Alkaline Phosphatase 167 U/L H U/L (38-126) Total Protein 6.0 g/dL L g/dL (6.3-8.2) Albumin 3.1 g/dL L g/dL (3.5-5.1) U Random Total Protein 13 mg/dL mg/dL Ur 24 Hour Volume 1700 ml ml Urine Creatinine 83.6 mg/dL mg/dL Creatinine Clearance 144.6 ml/min H ml/min (75-125) Ur Total Protein 24 Hr 221 mg/24hr H mg/24hr (28-141) RPR Blood Type Antibody Screen 01/11/23 01/11/23 10:14 10:14 WBC RBC Hgb Hct MCV MCH MCHC RDW Plt Count MPV Immature Gran % (Auto) Neut % (Auto) Lymph % (Auto) [place] % (Auto) Eos % (Auto) Baso % (Auto) Lymph # (Auto) [place] # (Auto) Eos # (Auto) Baso # (Auto) Abs Immat Gran (auto) Absolute Neuts (auto) Absolute Nucleated RBC Nucleated RBC % Sodium Potassium
[2023-01-11] MEDS: ONDANSETRON INJ 4 MG/2 ML VIAL IV PUSH (17:09)
[2023-01-11] MEDS: NIFEdipine 30 MG TAB.ER.24 60 MG PO (22:36)
[2023-01-12] VITALS (308 sets, daily range): BP systolic 120–174; BP diastolic 77–119; PULSE 86–144; RESP 20; TEMP 36.1–36.8; O2SAT 96–100
[2023-01-12] MEDS: AMPICILLIN 1 GM/NS 50 ML 1 GM/50 ML BAG IVPB ×4 (01:15→12:40)
[2023-01-12] MEDS: OXYTOCIN 30 UNITS/NS 500 ML 30 UNITS/500 ML BAG 6 UNITS IV CONT (05:46)
[2023-01-12] MEDS: ONDANSETRON INJ 4 MG/2 ML VIAL IV PUSH ×2 (06:18→12:39)
[2023-01-12] MEDS: LACTATED RINGERS 1,000 ML 999 ML IV CONT ×2 (08:39→16:58)
[2023-01-12] MEDS: diphenhydrAMINE HCl INJ 50 MG/ML VIAL 25 MG IV PUSH (15:36)
--- NOTE | 2023-01-12 17:03 | P.PNAN_ITS ---
Anes - Eval Final PreProcedure Day of Procedure 01/12/23 17:03 Patient weight: obese Heart: regular rate and rhythm Lungs: clear to auscultation Airway: Mallampati scale class II Neurological: alert and oriented ASA classification: III Emergent: no Anesthetic plan: proceed Anesthesia type and monitoring: regional epidural and standard monitoring Results Review: All pre-operative results and documents have been reviewed as part of the pre- operative evaluation. Informed Consent: The patient's anesthetic plan and its attendant risks and benefits were discussed with the patient/family/POA. Questions were solicited and answers provided to the satisfaction of the patient/family/POA.
[2023-01-12] MEDS: ceFAZolin 2 GM/D5W 50 ML 2 GM/50 ML BAG IVPB (17:16)
--- NOTE | 2023-01-12 17:24 | PM.IMHP ---
H&P: HPI History of Present Illness Date/Time: 01/12/23 17:24 Chief Complaint: failure to progress in labor Narrative: the patient is a 32-year-old 1 para 0 admitted at 36 and 2 7th weeks with gestational hypertension. Pressures were in the severe range so patient was kept overnight and observed. 24hour urine and labs were normal. Patient did require Procardia for blood pressure management. Patient continued to elevated pressures despite 60 of Procardia therefore was recommended to proceed with delivery. The patient was induced starting the morning of 01/11. She has had very slow progress and has stalled at 7cm for [id number]. Contractions have been adequate during most of that time. It was recommended to proceed with for failure to progress. Patient voices understanding and agrees to proceed with at this time. labs A positive, rubella immune,RPR, negative hepatitis-B surface antigen negative, and group B strep was performed but not completed. Patient has been receiving ampicillin since induction began. Review of Systems Review of Systems: not repeated day of surgery; patient states no changes in status PMFSH Past Medical History Medical History (Updated 01/12/23 @ 17:30 by Faina Almonte MD) Anxiety Depression Hypertension Surgical History Surgical History (Updated 01/12/23 @ 17:28 by Faina Almonte MD) H/O eye surgery multiple Family History Family History Mother Asthma Father Colon cancer Social History Social History Smoking status: Never smoker Second hand tobacco smoke exposure: No Alcohol intake: current Substance use: never Lack of Transportation: No Lack of Food: Never True Current Housing: I Have Housing Concerned About Future Housing: No Difficulty Paying Gas/Electric Bills: No Difficulty Paying for Meds: No Currently Unemployed: No Education: Bachelor's Degree Difficulty w/ Childcare or Family Care: No Spiritual care concerns: No Meds Home Medications and Allergies Home Medications Medication Instructions Recorded Confirmed Type cholecalciferol (vitamin D3) 1,250 50,000 unit PO WEEKLY 11/04/19 01/11/23 History mcg (50,000 unit) tablet bupropion HCl 150 mg tablet,12 hr 150 mg PO DAILY 12/27/21 01/11/23 History sustained-release (Wellbutrin SR) sertraline 100 mg tablet 100 mg PO DAILY 12/27/21 01/11/23 History prenat.vits,karine,vai-fhqs-gbyne 1 tablet PO HS 01/03/23 01/11/23 History Allergies Allergy/AdvReac Type Severity Reaction Status Date / Time No Known Allergies Allergy Verified 12/27/21 15:18 Vital Signs Vital Signs - 24 hr 01/11/23 17:25 01/11/23 17:30 01/11/23 17:35 Temperature Pulse Rate 83 Blood Pressure 116/75 Pulse Oximetry 100 100 100 01/11/23 17:40 01/11/23 17:42 01/11/23 17:45 Temperature Pulse Rate 86 Blood Pressure 113/78 Pulse Oximetry 100 93 01/11/23 17:47 01/11/23 17:52 01/11/23 17:57 Temperature Pulse Rate Blood Pressure Pulse Oximetry 100 100 100 01/11/23 18:00 01/11/23 18:02 01/11/23 18:07 Temperature Pulse Rate 83 Blood Pressure 115/70 Pulse Oximetry 100 100 01/11/23 18:12 01/11/23 18:15 01/11/23 18:17 Temperature Pulse Rate 82 Blood Pressure 123/78 Pulse Oximetry 100 100 01/11/23 18:22 01/11/23 18:27 01/11/23 18:30 Temperature Pulse Rate 90 Blood Pressure 126/79 Pulse Oximetry 100 100 01/11/23 18:32 01/11/23 18:37 01/11/23 18:42 Temperature Pulse Rate Blood Pressure Pulse Oximetry 100 99 100 01/11/23 18:45 01/11/23 18:47 01/11/23 18:52 Temperature Pulse Rate 81 Blood Pressure 126/81 Pulse Oximetry 99 100 01/11/23 18:57 01/11/23 19:00 01/11/23 19:02 Temperature Pulse Rate 80 Blood Pressure 128/76
--- NOTE | 2023-01-12 18:15 | W.PM.PROC2 ---
Procedure Note - Detailed Date of Procedure 01/12/23 Pre-op Diagnosis Intrauterine at 36 and 5 7th weeks gestational hypertension failure to progress in labor Post-op Diagnosis Same Procedure Performed primary low-transverse section Surgeon Faina Almonte MD Anesthesia Epidural Findings female infant in the left occiput posterior position with a nuchal cord x1 easily reduced; Apgars of 8 [id number] and 9 [id number]; weight is 5 lb 7oz; normal-appearing tubes and ovaries; 3 small fibroids approximately 1cm noted on the fundus (2 anterior 1 posterior) Description of Procedure The patient was taken to the operating room and placed under anesthesia in the dorsal supine position with a leftward tilt. She was prepped and draped in usual sterile fashion. Pfannenstiel skin incision was made with a scalpel and carried to the underlying layer of fascia. The fascia was nicked in the midline and extended laterally using Clarke scissors. Ochsner was used to tent the fascia which was then dissected off using sharp and blunt dissection. The rectus muscles were in the midline and the peritoneum entered with a Peon. The incision was extended with blunt traction. The bladder blade is placed and the vesicouterine peritoneum tented and entered with Metzenbaum and extended laterally the bladder flap was created digitally. The Glenroy O retractor was placed and the bladder blade is removed. The lower uterine segment was incised in a transverse fashion with the scalpel and extended with blunt traction. The is brought up into the incision and noted to be in the left occiput posterior position. The was fully delivered with the maintenance assistant applying fundal pressure and guiding the vertex. Nuchal cord x1 is reduced. The cord was clamped and cut handed to the waiting nursery nurse. Cord gases and cord blood were taken. The placenta is removed using manual traction. The uterus is bimanually massaged due to atony and Pitocin was increased 40units in a L with pressure. This was not successful in relieving the atony therefore the patient was given Hemabate. With continued massage and medications the atony resolved. The uterus is cleared of all clots and debris. The uterine incision was closed using 0 Monocryl in a running locked fashion. Same suture was used to imbricate and obtain hemostasis. The cul-de-sac and gutters are irrigated and the incision again inspected noted to be hemostatic. Glen[place] O retractor was removed and the fascia was closed using 0 Vicryl in a running fashion. Subcutaneous tissues were irrigated made hemostatic using Bovie cautery. Skin incision was closed using 4-0 Vicryl in a subcuticular fashion. Dermaflex and Mepilex dressing are placed. Patient was given Ancef and Zithromax. Sponge, needle, and instrument counts are correct per the OR staff. Patient was taken to recovery in stable condition. Estimated Blood Loss 425 Urine Output 200 Drains Yes ( Woods catheter) Packing No Pathology Yes ( placenta) Complications No immediate complications Condition Stable Disposition Floor
--- NOTE | 2023-01-12 18:20 | PM.OBDSVD ---
DS: Admitting Diagnosis Discharge Date 01/14/23 <Jesus Nathan MD - Last Filed: 01/14/23 08:20> Admitting Diagnosis intrauterine at 36 and 4 7th weeks gestational hypertension <Faina Almonet MD - Last Filed: 01/15/23 09:23> DS: Discharge Diagnosis Discharge Diagnosis (1) 36 to 37 weeks gestation of : Status: Acute <Faina Almonte MD - Last Filed: 01/15/23 09:23> (2) Gestational hypertension: Code(s): O13.9 - Gestational [-induced] hypertension without significant proteinuria, unspecified trimester <Faina Almonte MD - Last Filed: 01/15/23 09:23> Status: Acute <Faina Almonte MD - Last Filed: 01/15/23 09:23> (3) Failure to progress in labor: Code(s): O62.2 - Other uterine inertia <Faina Almonte MD - Last Filed: 01/15/23 09:23> Status: Acute <Faina Almonte MD - Last Filed: 01/15/23 09:23> (4) delivery delivered: Code(s): O82 - Encounter for delivery without indication <Faina Almonte MD - Last Filed: 01/15/23 09:23> Status: Acute <Faina Almonte MD - Last Filed: 01/15/23 09:23> OB - DS: Summary OB Procedures : NST, PIH Mgmt and Ultrasound <Faina Almonte MD - Last Filed: 01/15/23 09:23> OB Procedures Intrapartum: low cervical, transverse <Faina Almonte MD - Last Filed: 01/15/23 09:23> OB Procedures: : None <Faina Almonte MD - Last Filed: 01/15/23 09:23> Peripartum Data Infant Delivery Method: Section <Faina Almonte MD - Last Filed: 01/15/23 09:23> Procedures: Procedures Operation Date: 01/12/23 17:15 <No data on this case meets the specified criteria> <Faina Almonte MD - Last Filed: 01/15/23 09:23> complications: none <Faina Almonte MD - Last Filed: 01/15/23 09:23> Status at Discharge Functional status at discharge: independent ambulation <Faina Almonte MD - Last Filed: 01/15/23 09:23> Overall status at discharge: patient is progressing back to baseline <Faina Almonte MD - Last Filed: 01/15/23 09:23> Time Spent with Patient Time attestation: Total time spent providing and/or coordinating discharge services: <Faina Almonte MD - Last Filed: 01/15/23 09:23> Discharge Plan Discharge Attending physician on discharge: Faina Almonte <Faina Almonte MD - Last Filed: 01/15/23 09:23> Faina Almonte <Jesus Nathan MD - Last Filed: 01/14/23 08:20> Discharging Clinician: Jesus Nathan <Faina Almonte MD - Last Filed: 01/15/23 09:23> Jesus Nathan <Jesus Nathan MD - Last Filed: 01/14/23 08:20> Anticipated Discharge Date/Time: 01/14/23 11:14 <Faina Almonte MD - Last Filed: 01/15/23 09:23> Patient Disposition: Home, Self-Care <Faina Almonte MD - Last Filed: 01/15/23 09:23> Activity: may shower, may drive after 2 weeks and pelvic rest <Faina Almonte MD - Last Filed: 01/15/23 09:23> may shower, may drive after 2 weeks and pelvic rest <Jesus Nathan MD - Last Filed: 01/14/23 08:20> Diet: regular <Faina Almonte MD - Last Filed: 01/15/23 09:23> regular <Jesus Nathan MD - Last Filed: 01/14/23 08:20> Wound Care Instructions: keep dressing dry <Faina Almonte MD - Last Filed: 01/15/23 09:23> keep dressing dry <Jesus Nathan MD - Last Filed: 01/14/23 08:20> Discharge Instructions: Education: Mom and Baby Guide Given to: Mother Follow-Up: Call your delivering provider's office for an appointment to be seen in: 1 Week Mom and baby should come to the [facility] for the follow-up appointment. Appointment Date/Time: January 16, 2023 at 9:00 am Wh
[2023-01-12] MEDS: OXYTOCIN 30 UNITS/NS 500 ML 30 UNITS/500 ML BAG 125 UNITS IV CONT (18:52)
[2023-01-12] MEDS: MORPHINE SULFATE (*CRX) 2 MG/ML INJ 1 MG IV PUSH (19:11)
[2023-01-12] MEDS: fentaNYL CITRATE INJ (*CRX) 100 MCG/2 ML VIAL 25 MCG IV PUSH ×2 (20:25→20:28)
--- NOTE | 2023-01-12 20:45 | PC.NURSE ---
Patient transferred to post room # 286 via (stretcher ). Support person present. Oriented to unit, room, information board, rooming in, admission packet and security measures. Patient verbalizes understanding.
[2023-01-12] MEDS: DEXTROSE 5%/0.45% SOD CHL 1,000 ML 125 ML IV CONT (23:15)
[2023-01-13 01:52] VITALS: BP 139/86; PULSE 97; RESP 18; TEMP 36.4; O2SAT 96
[2023-01-13] MEDS: IBUPROFEN 600 MG TABLET PO (06:46)
[2023-01-13 07:00] VITALS: BP 136/82; PULSE 98; RESP 16; TEMP 36.8; O2SAT 98
[2023-01-13 07:01] LABS: Basophils Percent Auto 0.1 % (0.2-1.2); Eosinophils Percent Auto 0.1 % (0-4.4); Hematocrit 30.5 % (37.0-47.0); Hemoglobin 9.9 g/dL (12.0-15.0); Immature Granulocyte Absolute 0.06 K/mm3 (0.00-0.031); Immature Granulocyte Percent A 0.4 % (0-0.5); Lymphocytes Absolute Auto 1.39 K/mm3 (0.9-3.2); Lymphocytes Percent Auto 10.1 % (18.3-44.2); Mean Corpuscular HGB Conc 32.5 g/dl (32-36); Mean Corpuscular Hemoglobin 29.8 pg (26-34); Mean Corpuscular Volume 91.9 fl (80-100); Mean Platelet Volume 11.1 fl (7.4-10.4); Monocytes Absolute Auto 0.8 K/mm3 (0.1-0.6); Monocytes Percent Auto 5.7 % (2.6-8.5); Neutrophils Absolute Auto 11.6 K/mm3 (1.3-6.7); Neutrophils Percent Auto 83.6 % (45.5-73.1); Platelet Count Result 150 k/mm3 (150-375); Red Blood Count 3.32 M/mm3 (4.2-5.4); Red Cell Distribution Width 14.2 % (11.5-14.5); White Blood Count 13.8 K/mm3 (4.5-10.0)
--- NOTE | 2023-01-13 07:58 | PM.OBPNVD ---
OB - PN: Subj Subjective Date/time seen: 01/13/23 07:58 Interval history: Resting in bed. She denies HERRERA, visual changes, RUQ pain, or change in edema. Patient comments: no complaints, pain well controlled, tolerating diet and flatus present OB - PN: Obj Data Labs 01/13/23 06:54 01/10/23 16:55 Labs: Laboratory Results - last 24 hr 01/13/23 06:54 WBC 13.8 H RBC 3.32 L Hgb 9.9 L Hct 30.5 L MCV 91.9 MCH 29.8 MCHC 32.5 RDW 14.2 Plt Count 150 MPV 11.1 H Immature Gran % (Auto) 0.4 Neut % (Auto) 83.6 H Lymph % (Auto) 10.1 L [place] % (Auto) 5.7 Eos % (Auto) 0.1 Baso % (Auto) 0.1 L Lymph # (Auto) 1.39 [place] # (Auto) 0.8 H Eos # (Auto) 0.0 Baso # (Auto) 0.0 Abs Immat Gran (auto) 0.06 H Absolute Neuts (auto) 11.6 H Absolute Nucleated RBC 0.0 Nucleated RBC % 0.0 OB - PN A/P Plan day: 1 Plan: routine care Comments: patient doing well H/H , continue iron supplementation afebrile, VSS incision C/D/I vargas removed, voiding spontaneously continue routine post op care Time Spent With Patient Time: Total time spent is greater than 50% in coordination of care (as documented) at patient's floor/unit and/or counseling patient: Time with patient: less than 15 minutes Review of Systems Constitutional: Constitutional: Reports no additional constitutional complaints Cardiovascular: Cardiovascular: Reports no additional cardiovascular complaints Respiratory: Respiratory: Reports no additional respiratory complaints Gastrointestinal: Gastrointestinal: Reports no additional gastrointestinal complaints Genitourinary: Genitourinary: Reports no additional female genitourinary complaints Exam Const: General: comfortable and no acute distress Resp: Effort & Inspection: normal respiratory effort Auscultation: clear to auscultation bilaterally Cardio: Rate: regular rate GI: GI Palp: Yes Soft to palpation, Yes Tenderness to palpation present (GI) (around incision ) and No Guarding due to palpation present (GI) Auscultation: normal bowel sounds Other: incision C/D/I, covered with Dermabond Psych: Appearance: grossly normal Mental Status: mental status grossly normal Affect: normal affect
--- NOTE | 2023-01-13 09:47 | WPDANLDPN2 ---
Anes-Prog Note L&D Date/Time: 01/13/23 09:47 Comfortable throughout: section Neuraxial method: epidural Epidural/Spinal procedure site: clean & non-tender Neuro status: Neuro function grossly intact. Cardiovascular status: normal Respiratory status: normal Airway patency: baseline Mental status: baseline Post-Op hydration status: normal Vital Signs: Last Vital Signs Temp 36.8 C 01/13/23 07:00 Pulse 98 01/13/23 07:00 Resp 16 01/13/23 07:00 BP 136/82 01/13/23 07:00 Pulse Ox 98 01/13/23 07:00 O2 Del Method Room Air 01/13/23 07:00 Pain score (VAS): 3 I/O: Intake & Output 01/12/23 01/13/23 01/13/23 23:59 07:59 15:59 Intake Total 1420 Output Total 1471 Balance -1471 1420 Post-procedural complaints: none Patient feedback: Patient satisfied with anesthetic care.
--- NOTE | 2023-01-13 09:47 | WPDANLDNPN2 ---
Anes-Prog Note L&D-Neuraxial Date/Time: 01/13/23 09:47 Neuraxial medications: epidural PF morphine Opiod-related complaints: none Patient feedback: Patient satisfied with post-operative pain management.
[2023-01-13] MEDS: DOCUSATE SODIUM 100 MG CAPSULE PO ×2 (09:52→17:09)
[2023-01-13] MEDS: SERTRALINE HCL 50 MG TABLET 100 MG PO (09:52)
[2023-01-13] MEDS: buPROPion HCL SR (12 HR) 150 MG TAB PO (09:52)
[2023-01-13] MEDS: POLYSACCHARIDE IRON COMPLEX 150 MG CAPSULE PO ×2 (09:53→17:09)
[2023-01-13] MEDS: MULTIVIT/MIN/PREN/FOL AC/IRON TABLET 1 TAB PO (09:55)
[2023-01-13] MEDS: LANOLIN (LANSINOH) 7.5 GM CREAM 1 APPLIC TOPICAL (09:56)
[2023-01-13 13:00] VITALS: BP 128/88; PULSE 98; RESP 16; TEMP 36.7; O2SAT 100
[2023-01-13] MEDS: HYDROcodone/acetaminophen (*CRX) 5-325 MG TABLET 1 TAB PO (17:09)
[2023-01-13 17:20] VITALS: BP 142/90
[2023-01-13 19:37] VITALS: BP 148/96; PULSE 98; RESP 16; RESP 18; TEMP 36.9; O2SAT 100; O2SAT 95
[2023-01-14] MEDS: HYDROcodone/acetaminophen (*CRX) 10-325 MG TABLET 1 TAB PO (01:05)
[2023-01-14 01:32] VITALS: BP 134/93
[2023-01-14] MEDS: POLYSACCHARIDE IRON COMPLEX 150 MG CAPSULE PO (08:53)
[2023-01-14] MEDS: MULTIVIT/MIN/PREN/FOL AC/IRON TABLET 1 TAB PO (08:53)
[2023-01-14] MEDS: DOCUSATE SODIUM 100 MG CAPSULE PO (08:53)
[2023-01-14] MEDS: buPROPion HCL SR (12 HR) 150 MG TAB PO (08:54)
[2023-01-14] MEDS: HYDROcodone/acetaminophen (*CRX) 5-325 MG TABLET 1 TAB PO (08:54)
[2023-01-14] MEDS: IBUPROFEN 600 MG TABLET PO (08:54)
[2023-01-14] MEDS: SERTRALINE HCL 50 MG TABLET 100 MG PO (08:54)
[2023-01-14 09:00] VITALS: BP 133/87; PULSE 99; RESP 16; TEMP 36.8; O2SAT 99
--- NOTE | 2023-01-14 12:00 | PC.NURSE ---
Patient viewed the discharge video Mother & Baby Care, The First Two Weeks . Patient was given the opportunity and encouraged to ask questions. Patient verbalized understanding of information shared and has been given the mother/baby guide for home reference.
[2023-01-16 09:42] VITALS: BP 160/96; PULSE 78; RESP 16; TEMP 36.6; O2SAT 99
== END 2023-01-14 12:20 | disposition home or self-care (01) | DRG 788 ==
LOC: ANHOBPP 17:58 → ANHLDR 01-12 18:22 → ANHOB2 01-14 10:09 → ANHLDR 01-16 06:29 → ANHOB2 01-16 06:29 → ANHOBPP 01-16 06:29
PROVIDERS: Advanced Practice Midwife; Admitting Provider Obstetrics & Gynecology Gynecology; PCP Student in an Organized Health Care Education/Training Program; Visit Provider Student in an Organized Health Care Education/Training Program
PROC: 10D00Z1 Extraction of Products of Conception, Low, Open Approach (ICD-10-PCS; CPT 59514; principal; 2023-01-12 17:15)
DX: O62.2 Other uterine inertia (principal); O13.4 Gestational [pregnancy-induced] hypertension without significant proteinuria, complicating childbirth; O99.344 Other mental disorders complicating childbirth; F41.8 Other specified anxiety disorders; O69.81X0 Labor and delivery complicated by cord around neck, without compression, not applicable or unspecified; O34.13 Maternal care for benign tumor of corpus uteri, third trimester; D25.9 Leiomyoma of uterus, unspecified; Z3A.37 37 weeks gestation of pregnancy; Z37.0 Single live birth
CPT/HCPCS: 36415; 59025; 76816; 76820; 80053; 81001; 81050; 82570; 82575; 84156; 84550; 85025; 85027; 86592; 86850; 86900; 86901; 87086; 87088; 88307; 96374; A9270; G0378; G0379; J0290; J0456; J0690; J1200; J2270; J2274; J2405; J2590; J2795; J3010; J7120

== ENCOUNTER 2025-06-01 15:19 | Outpatient (CLI) | payer OTHER, SELFPAY ==
--- OUTSIDE RECORDS SUMMARY | 2025-06-01 15:33 | XMS_ITS | Clinical Summary ---
Author Organization [facility] Address [address] [place] [address] Care Team Providers Care Treasury Assistant Name Role Phone Unavailable Primary Care Provider Unavailabl e Source Comments [facility],non-owned Affiliates and Associated Physician Practices is amultiple site organization consisting of ambulatory clinics and hospital sitesin [place], [place], [place] and [place]. This disclosure is being madepursuant to the Care Everywhere program and may not contain all information available regarding this patient. Last updated 18.[facility] [employer] Immunizations Immunization Administration Dates Next Due TDAP (7yrs+) 03/29/2018 Social History Tobacco Use Types Packs/Day Years Used Date Smoking Tobacco: Never Assessed Comments Unknown Sex and Gender Information Value Date Recorded Sex Assigned at Not on file Legal Sex Female 12:51 PM CDT Gender Identity Not on file Sexual Orientation Not on file Plan of Treatment Health Maintenance Due Date Last Done Comments HIV SCREENING 2004 HEPATITIS C SCREENING 06/21/2007 HEPATITIS B VACCINE (1 of 3 - 19+ 3-dose series) 2008 HPV VACCINE (1 - 3-dose SCDM series) 2016 COVID-19 VACCINE (2023-2 5 season) 2024 DEPRESSION SCREENING 10/08/2024 INFLUENZA VACCINE (#1) 2025 DTAP/TDAP/TD VACCINES (2 - T d or Tdap) 03/29/2028 03/29/2018 ZOSTER VACCINE (1 of 2) 2039 HIB VACCINE Aged Out No longer eligi ble based on patient's age to complete this topic MENINGOCOCCAL (Group B) VACC INE SHARED DECISION-MAKING Aged Out No longer eligibl e based on patient's age to complete this topic MENINGOCOCCAL GROUPS A/C/Y/W VACCINE Aged Out No longer eligible b ased on patient's age to complete this topic PNEUMOCOCCAL VACCINE Aged Out No long er eligible based on patient's age to complete this topic [place] [facility] [place] [address] [address]
--- OUTSIDE RECORDS SUMMARY | 2025-06-01 15:33 | XMS_ITS | Clinical Summary ---
Author Organization [facility] Address [facility] [place] [address] Care Team Providers Care Textile Engineer Name Role Phone Ricardo Sorto Amee MOCTEZUMA Primary Care Provider + Allergies No known active allergies Medications Cholecalciferol (VITAMIN D) 125 MCG (5000 UT) Cap weekly. Active buPROPion SR 150 MG 12 hr tablet Take by mouth daily. Active sertraline 100 MG tablet daily. Active hydrOXYzine 25 MG tablet Pt takes 1 daily 01/21/2022 Active vitamin D2, ergocalciferol, (DRISDOL) 1.25 mg capsule Take 1 capsule (1.25 mg total) by mouth once a week. 02/12/2023 Active Active Problems No known active problems Immunizations Immunization Administration Dates Next Due Tdap (Generic) 03/29/2018,04/27/2016 Family History Medical History Relation Comments Colon Cancer Father Kidney Disease Maternal Grandmother Depression Mother Diabetes Mother Judith's thyroiditis Mother Stroke Paternal Grandmother Depression Sister Relation Status Comments Father Alive Maternal Grandfather Maternal Grandmother Mother Alive Paternal Grandfather Paternal Grandmother Sister Alive Social History Tobacco Use Types Packs/Day Years Used Date Smoking Tobacco: Never Smokeless Tobacco: Never Tobacco Cessation:Counseling Given: No Alcohol Use Standard Drinks/Week Comments Yes 0 (1 standard drink = 0.6 oz pur e alcohol) social, wine AUDIT-C Answer Date Recorded Frequency of Alcohol Consumption Never 07/24/2018 Average Number of Drinks Not on file 018 Frequency of Binge Drinking Not on file 07/08 PHQ-2 Answer Date Recorded Patient Health Questionnaire-2 Score 0 03/30/2023 Comments No Sex and Gender Information Value Date Recorded Sex Assigned at Not on file Legal Sex Female 4:18 PM CDT Gender Identity Not on file Sexual Orientation Not on file Occupation Industry Job Start Date Job End Date Not on file Not on file Not on file Not on file Last Filed Vital Signs Vital Sign Reading Time Taken Comments Blood Pressure 126/74 03/30/2023 8:13 AM CDT Pulse 68 03/30/2023 8:13 AM CDT Temperature 36.7 C (98.1 F) 03/30/2023 8:13 AM CDT Respiratory Rate 14 03/30/2023 8:13 AM CDT Oxygen Saturation 98% 03/30/2023 8:13 AM CDT Inhaled Oxygen Concentration - - Weight 96.2 kg (212 lb) 03/30/2023 8:13 AM CDT Height 157.5 cm (5' 2) 03/30/2023 8:13 AM CDT Body Mass Index 38.78 03/30/2023 8:13 AM CDT Plan of Treatment Health Maintenance Due Date Last Done Comments Annual Physical 1992 Hepatitis B Vaccines (1 of 3 - 19+ 3-dose series) 2008 HPV Vaccines (1 - 3-dose SCD M series) 2016 Cervical Cancer Screening Pa p with HPV Testing (Age 30 to 64) Every 5 Years 2019 COVID-19 Vaccine (2023-2 5 season) 2024 09/29/2021, 12/25/2020, 11/27/2020 PHQ-2 (Physician [place]) 10/08/2024 Cervical Cancer Screening Pa p Smear (Age 30 to 64) Every 3 Years 12/13/2024 12/13/2021, 12/07/2020 Cervical Cancer Screening wi th HPV 12/13/2024 DTaP, Tdap and Td Vaccines ( 3 - Td or Tdap) 03/29/2028 03/29/2018, 04/27/2016 Hepatitis C Completed 04/12/2022 Meningococcal B Vaccine Aged Out No l onger eligible based on patient's age to complete this topic Meningococcal Vaccine Aged Out No sunni mansoor eligible based on patient's age to complete this topic Pneumococcal Vaccine: Pediatrics (0 to 5 Years) and At-Risk Patients (6 to 49 Years) Aged Out No longer eligible b ased on patient's age to complete this topic RSV Immunizations Under 20 Months Aged Out No longer eligible b ased on patient's age to complete this topic Procedures Procedure Name Priority Date/Time Associated Diagnosis Comments HEPATITIS C ANTIBODY Routine 04/12/2022 9:29 AM CDT Need for hepatitis C screening test OUTSIDE CYTOPATH CERV/VAG INTERPRET (PAP) (SCAN ORDER) 12/13/2021 from Last 3 Months or Most Recently Relevant to Health Maintenance Results * HEPATITIS C AB ([facility] ONLY) (04/12/2022 9:29 AM CDT) HEPATITIS C AB NON-REACTI VE NON-REACT LEIGH ANN 04/12/2022 8:12 PM CDT [facility] Comment: ANTIBODIES TO HCV NOT DETECTED. DOES NOT EXCLUDE THE POSSIBILITY OF EXPOSURE TO HCV. 04/12/2022 9:29 AM CDT Ricardo Sorto DO LABORATORY Final Re sult [facility] [address] [place] [address], [id number] * PAP SMEAR (12/13/2021) 12/13/2021 Narrative 12/13/2021 Ordered by an unspecified provider. us Documents Scanned SCANNING Final Result from Last 3 Months or Most Recently Relevant to Health Maintenance Insurance Care Teams Textile Engineer Relationship Specialty Start Date End Date Ricardo Sorto DO [address] [place] [id number] PCP - General FAMILY PRACTICE 04/19/22
[2025-06-01 16:20] LABS: Beta HCG Quantitative 151.74 mIU/ML
== END 2025-06-01 15:20 | disposition home or self-care (01) ==
LOC: ANHLAB 15:22
PROVIDERS: PCP Student in an Organized Health Care Education/Training Program; Visit Provider Obstetrics & Gynecology
DX: O20.0 Threatened abortion (principal); Z3A.00 Weeks of gestation of pregnancy not specified
CPT/HCPCS: 36415; 84702

== ENCOUNTER 2025-06-03 15:02 | Outpatient (CLI) | payer OTHER, SELFPAY ==
--- OUTSIDE RECORDS SUMMARY | 2025-06-03 15:06 | XMS_ITS | Clinical Summary ---
Author Organization [facility] Address Replaced by [facility] [place] [address] Care Team Providers Care Card Seller Name Role Phone Ricardo Sorto Amee MOCTEZUMA [...] season) 2024 09/29/2021, 12/25/2020, 11/27/2020 PHQ-2 (Physician [place]) 10/08/2024 Cervical Cancer Screening Pa p Smear [...] Health Maintenance Results * HEPATITIS C AB ([facility] ONLY) (04/12/2022 9:29 AM CDT) HEPATITIS C AB NON-REACTI VE NON-REACT LEIGH ANN 04/12/2022 8:12 PM CDT [facility] Comment: ANTIBODIES TO HCV NOT DETECTED. DOES NOT EXCLUDE THE POSSIBILITY OF EXPOSURE TO HCV. 04/12/2022 9:29 AM CDT Ricardo Sorto DO LABORATORY Final Re sult [facility] [address] [place] [address], [id number] * PAP SMEAR (12/13/2021) 12/13/2021 Narrative 12/13/2021 Ordered by an unspecified provider. us Documents Scanned SCANNING Final Result from Last 3 Months or Most Recently Relevant to Health Maintenance Insurance Care Teams Card Seller Relationship Specialty Start Date End Date Ricardo Sorto DO [address] [place] [id number] PCP - General FAMILY PRACTICE 04/19/22
--- OUTSIDE RECORDS SUMMARY | 2025-06-03 15:06 | XMS_ITS | Clinical Summary ---
Author Organization [facility] Address [address] [place] [address] Care Team Providers Care Judge Name Role Phone Unavailable Primary Care Provider Unavailabl e Source Comments [facility],non-owned Affiliates and Associated Physician Practices is amultiple site organization consisting of ambulatory clinics and hospital sitesin [place], [place], [place] and [place]. This disclosure is being madepursuant to the Care Everywhere program and may not contain all information available regarding this patient. Last updated 18.[facility] Immunizations Immunization Administration Dates Next Due TDAP [...] patient's age to complete this topic Insurance [facility]
[2025-06-03 16:10] LABS: Beta HCG Quantitative 311.61 mIU/ML
== END 2025-06-03 15:03 | disposition home or self-care (01) ==
PROVIDERS: PCP Student in an Organized Health Care Education/Training Program; Visit Provider Obstetrics & Gynecology
DX: O20.0 Threatened abortion (principal); Z3A.00 Weeks of gestation of pregnancy not specified
CPT/HCPCS: 36415; 84702

== ENCOUNTER 2025-07-17 17:47 | Observation (INO) | payer OTHER, SELFPAY ==
[2025-07-17] VITALS (37 sets, daily range): BP systolic 77–136; BP diastolic 56–98; PULSE 81–128; RESP 3–34; TEMP 36.8; O2SAT 95–100
[2025-07-17] MEDS: SODIUM CHLORIDE 0.9% IV 1,000 ML 999 ML IV CONT ×2 (18:14→21:52)
[2025-07-17] MEDS: ONDANSETRON INJ 4 MG/2 ML VIAL IV PUSH (18:14)
[2025-07-17 18:21] LABS: Hematocrit 39.1 % (37.0-47.0); Hemoglobin 12.9 g/dL (12.0-15.0); Immature Granulocyte Percent A 0.3 % (0-0.5); Lymphocytes Absolute Auto 2.58 K/mm3 (0.9-3.2); Mean Corpuscular HGB Conc 33.0 g/dl (32-36); Mean Corpuscular Hemoglobin 28.4 pg (26-34); Mean Corpuscular Volume 86.1 fl (80-100); Nucleated Red Blood Cells Absolute Auto 0.000 K/mm3 (0.0-0.012); Nucleated Red Blood Cells Perc 0.0 % (0.0-0.2); Platelet Count Result 272 k/mm3 (150-375); Red Blood Count 4.54 M/mm3 (4.2-5.4); White Blood Count 11.5 K/mm3 (4.5-10.0)
[2025-07-17 18:33] LABS: INR 1.0; Prothrombin Time 13.5 Seconds (11.1-14.7)
[2025-07-17 18:34] LABS: Partial Thromboplastin Time 30.4 Seconds (22.3-36.8)
--- NOTE | 2025-07-17 18:36 | ED.PREGNANCY ---
HPI - General Chief complaint: Vaginal Bleeding Stated complaint: misoprosol heavy bleeding that won't stop Time Seen by Provider: 07/17/25 17:49 Source: patient Mode of arrival: ambulatory Limitations: no limitations History of Present Illness HPI Narrative: Patient is a 35-year-old female who presents to the ED with report of vaginal bleeding. Patient reports she was diagnosed with a blighted ovum on 07/07. . Was around 8 weeks gestation. OBGYN is Dr. Michele. Was prescribed misoprostol, which she decided to take the 1st dose of today around 10 30 a.m.. Began having vaginal bleeding around 2:30 p.m.. States she has been having very heavy bleeding, bleeding through around 2 pads per hour. Has been having clots. Reports diffuse lower abdominal cramping, intermittent mild lightheadedness. Denies feeling near syncopal. Denies fevers. Related Data Home Medications ?Medication ?Instructions ?Recorded ?Confirmed ?Last Taken ?Type bupropion HCl 150 mg tablet,12 hr 150 mg PO DAILY 12/27/21 07/18/25 07/17/25 History sustained-release (Wellbutrin SR) sertraline 100 mg tablet 100 mg PO DAILY 12/27/21 07/18/25 07/17/25 History hydroxyzine pamoate 25 mg capsule 25 mg PO DAILY PRN anxiety 07/18/25 07/18/25 Unknown History Allergies Allergy/AdvReac Type Severity Reaction Status Date / Time No Known Allergies Allergy Verified 07/18/25 00:14 Review of Systems Review of Systems: All systems reviewed & are unremarkable except as noted in HPI. All systems reviewed & are unremarkable except as noted in HPI and below PMFSH Past Medical History Medical History Anxiety Hypertension Depression Surgical History Surgical History H/O eye surgery multiple Family History Family History Mother Asthma Father Colon cancer Social History Social History Smoking status: Never smoker Second hand tobacco smoke exposure: No Alcohol intake: current Substance use: never Lack of Transportation: No Lack of Food: Never True Current Housing: I Have Housing Concerned About Future Housing: No Difficulty Paying Gas/Electric Bills: No Difficulty Paying for Meds: No Currently Unemployed: No Education: Bachelor's Degree Difficulty w/ Childcare or Family Care: No Spiritual care concerns: No Exam Narrative: GENERAL: Well appearing, morbidly obese with BMI of 41.5, non-toxic, in no acute distress. HEAD: Normocephalic, atraumatic. RESPIRATORY: Airway patent, respirations nonlabored. Clear to auscultation bilaterally, no rales, rhonchi, wheezing. CARDIOVASCULAR: Borderline tachycardic with regular rhythm without murmurs, rubs, or gallops. ABDOMINAL: Soft, mild diffuse tenderness throughout lower abdomen, no rebound, nondistended. Normoactive BS. PELVIC: Normal external genitalia. Large volume bright red bleeding with numerous large almost palm size blood clots in vaginal vault. Upon visualization of cervix, os is partially dilated with sac-like appearing clot at os. MUSCULOSKELETAL: Moves all extremities. No gross deformities. SKIN: Warm, dry, normal color. NEURO: A&O X3. Speech clear. Cranial nerves II-XII grossly intact. Steady gait. No ataxic movements. PSYCHIATRIC: Appropriate mood and affect. Normal interaction. Course Vital Signs Vital signs: Vital Signs Temperature 98.2 F 07/17/25 17:53 Pulse Rate 115 H 07/17/25 17:53 Respiratory Rate 20 07/17/25 17:53 Blood Pressure 129/98 H 07/17/25 17:53 Pulse Oximetry 98 07/17/25 17:53 Oxygen Delivery Room Air 07/17/25 17:53 Temperature 98.2 F 07/18/25 00:17 Pulse Rate 112 H 07/18/25 00:17 Respiratory Rate 13 07/18/25 00:17 Blood Pressure 107/70 07/18/25 00:17 Pulse Oximetry 100 07/18/25 00:17 Oxygen Delivery Room Air 07/17/25 17:53 MDM - OB/Uterine Contractions MDM Narrative Medical decision making narrative: Patient presented to ED with heavy vaginal bleeding after starting misoprostol for spontaneous miscarriage/blighted ovum today. Patient initially tachycardic upon arrival. In no acute distress. Fluids were initiated. Cbc with white blood cell count of 11.2. Hemoglobin is stable at 12.9. Beta hCG 13,630. Blood type is A positive, no indication for RhoGAM. After my initial evaluation, patient began feeling nauseous, became diaphoretic, lightheaded. Had a very brief syncopal episode which was witnessed by her significant other in the ED, lasted a couple of seconds. Heart rate did decrease from 120s to 70s. Consistent with vasovagal syncope. By the time I was called back to patient's room, less than 1 minute later, patient was feeling improved already, alert & oriented, neurologically intact. EKG w/ NSR, no concerning ST changes. Fluids remain ongoing. Pelvic exam did reveal heavy vaginal bleeding with numerous blood clots. Suction was required to clear field enough to be able to visualize cervix. Approx 50-75cc of blood suctioned from vaginal vault. Numerous clots were removed with ring forceps. Once clots were able to be removed and cervix fully visualized, did not appear to be having brisk bleeding coming from cervix. No immediate re-pooling of fluid. There did appear to be a clot at the cervical os that I was unable to remove with ring forceps. Discussed case with ARIK Estes operations administrator for [facility], recommended to obtain ultrasound and call back. Unfortunately ultrasound is not available to me at this time. Discussed this with Dr. Bartlett, advised will recheck patient's H&H and repeat pelvic exam to evaluate for continued heavy bleeding in 1 hour and call back. Repeat H&H at 2153 showed decreased from 12.9 to 11.2. Repeat pelvic exam did show improvement of bleeding however. I did remove a few smaller clots on re-examination, but bleeding has significantly slowed. No signs of hemorrhage or pooling of fluid at this time. There does still appear to be a clot attempting to pass from the cervical os. Attempted to remove this with ring forceps, however only was able to break off small pieces of the clot. Re-discussed case with ARIK Estes, advised will admit under his service, continue to monitor, repeat labs in am, no indication for emergent D&C at this time. Recommended to give additional 1000mg cytotec oral. Patient remaining stable at this time. Blood pressure stable. Heart rate was elevated into the 120 range briefly, but did improve into 90s. Fluids are ongoing. She is comfortable with plan for admission. Ultrasound ordered for a.m. Medical Records Attestation: I reviewed the patient's medical records. Lab Data Attestation: I reviewed the patient's lab results. 07/17/25 21:53 07/17/25 18:14 Labs: Lab Results 07/17/25 07/17/25 Range/Units 18:14 21:53 WBC 11.5 H (4.5-10.0) K/mm3 RBC 4.54 (4.2-5.4) M/mm3 Hgb 12.9 D 11.2 L (12.0-15.0) g/dL Hct 39.1 34.4 L (37.0-47.0) % MCV 86.1 (80-100) fl MCH 28.4 (26-34) pg MCHC 33.0 (32-36) g/dl RDW 13.3 (11.5-14.5) % Plt Count 272 D (150-375) k/mm3 MPV 9.9 (7.4-10.4) fl Immature Gran % (Auto) 0.3 (0-0.5) % Neut % (Auto) 71.1 (45.5-73.1) % Lymph % (Auto) 22.5 (18.3-44.2) % [place] % (Auto) 4.8 (2.6-8.5) % Eos % (Auto) 1.0 (0-4.4) % Baso % (Auto) 0.3 (0.2-1.2) % Lymph # (Auto) 2.58 (0.9-3.2) K/mm3 [place] # (Auto) 0.6 (0.1-0.6) K/mm3 Eos # (Auto) 0.1 (0-0.3) K/mm3 Baso # (Auto) 0.0 (0.0-0.1) K/mm3 Abs Immat Gran (auto) 0.04 H (0.00-0.031) K/mm3 Absolute Neuts (auto) 8.1 H (1.3-6.7) K/mm3 Absolute Nucleated RBC 0.000 (0.0-0.012) K/mm3 Nucleated RBC % 0.0 (0.0-0.2) % PT 13.5 (11.1-14.7) Seconds INR 1.0 APTT 30.4 (22.3-36.8) Seconds Sodium 134 L (137-145) mmol/L Potassium 3.8 (3.4-5.0) mmol/L Chloride 104 (98-107) mmol/L Carbon Dioxide 23 (22-30) mmol/L Anion Gap 7 (4-12) mmol/L BUN 11 D (7-17) mg/dL Creatinine 0.66 L (0.7-1.0) mg/dL Estim Creat Clear Calc 114 ml/min Estimated GFR > 60 (59 - ) Glucose 103 (65-110) mg/dL Calcium 9.2 (8.4-10.2) mg/dL Total Bilirubin 0.3 (0.2-1.3) mg/dL AST 20 (14-36) U/L ALT 19 (6-35) U/L Alkaline Phosphatase 49 (38-126) U/L Total Protein 6.8 (6.3-8.2) g/dL Albumin 3.8 (3.5-5.1) g/dL Beta HCG, Quant 87292.00 mIU/ML Blood Type A Positive Antibody Screen Negative Screen TNP Baby's Blood Type TNP Baby's EMMETT Not Reportable Doses of RhIg Required 0 ECG Data EKG #1: Attestation: I personally reviewed and interpreted this ECG as follows: ECG completion date: 07/17/25 ECG completion time: 18:44 EKG Interpretation: normal rate (75), sinus rhythm and non-specific ST changes Discharge Plan Discharge Clinical Impression: Spontaneous , Dysfunctional uterine bleeding Patient Disposition: Still a Patient Condition: Stable
[2025-07-17 18:37] LABS: Alanine Aminotransferase 19 U/L (6-35); Albumin Level 3.8 g/dL (3.5-5.1); Alkaline Phosphatase 49 U/L (38-126); Anion Gap 7 mmol/L (4-12); Aspartate Amino Transferase 20 U/L (14-36); Bilirubin,Total 0.3 mg/dL (0.2-1.3); Blood Urea Nitrogen 11 mg/dL (7-17); Calcium 9.2 mg/dL (8.4-10.2); Carbon Dioxide 23 mmol/L (22-30); Chloride 104 mmol/L (98-107); Estimated CRCL calculation 114 ml/min; Estimated Glomerular Filt Rate > 60; Glucose 103 mg/dL (65-110); Potassium 3.8 mmol/L (3.4-5.0); Sodium 134 mmol/L (137-145); Total Protein 6.8 g/dL (6.3-8.2)
--- NOTE | 2025-07-17 18:39 | ECG_ITS ---
Test Date: 2025-07-17 18:44:03 Measurements Intervals [place] Rate: 75 P: 34 NE: 141 QRS: 65 QRSD: 90 T: 34 QT: 355 QTc: 398 Interpretive Statements SINUS RHYTHM INCOMPLETE RIGHT BUNDLE BRANCH BLOCK BASELINE ARTIFACT- I, II, III, AVR, AVL, AVF, V1-V3 BORDERLINE ECG No previous ECG available for comparison Electronically Signed On 07-18-2025 09:00:13 CDT by Beni Ryan D.O.
[2025-07-17 19:19] LABS: Beta HCG Quantitative 13630.00 mIU/ML
[2025-07-17 22:07] LABS: Hematocrit 34.4 % (37.0-47.0); Hemoglobin 11.2 g/dL (12.0-15.0)
[2025-07-17] MEDS: SODIUM CHLORIDE 0.9% IV 1,000 ML 125 ML IV CONT (22:47)
[2025-07-18] VITALS (21 sets, daily range): BP systolic 90–133; BP diastolic 55–78; PULSE 93–118; RESP 13–20; TEMP 36.1–37.2; O2SAT 98–100; BMI 42.6
--- NOTE | 2025-07-18 00:24 | ADMGEN ---
This patient, Estefania Navarro, was admitted to 3 [facility] Surg Room 319-01. Patient/family oriented to hospital policies and general routines including ID bracelet, bed and alarms, visiting hours, pain management, procedures, bathroom and other care routines, personal items, smoking policy, room service/diet, and visiting hours. Information on how to activate the Rapid Response Team has been discussed. Patient/Family are encouraged to report perceived risks to care and to ask questions if they do not understand what they are told or what they should do.
[2025-07-18] MEDS: ONDANSETRON INJ 4 MG/2 ML VIAL IV PUSH ×2 (03:21→09:01)
[2025-07-18] MEDS: MORPHINE SULFATE (*CRX) 4 MG/ML INJ 2 MG IV PUSH ×2 (03:21→08:59)
[2025-07-18 06:20] LABS: Hematocrit 24.1 % (37.0-47.0); Hemoglobin 7.5 g/dL (12.0-15.0); Mean Corpuscular HGB Conc 31.1 g/dl (32-36); Mean Corpuscular Hemoglobin 28.3 pg (26-34); Mean Corpuscular Volume 90.9 fl (80-100); Platelet Count Result 375 k/mm3 (150-375); Red Blood Count 2.65 M/mm3 (4.2-5.4); White Blood Count 21.1 K/mm3 (4.5-10.0)
[2025-07-18 06:56] LABS: Band Neutrophils Percent 6 % (0-6); Lymphocytes Absolute Manual 2.74 K/mm3 (1.1-4.5); Lymphocytes Percent Manual 13 % (18-44); Monocytes Absolute Manual 0.84 K/mm3 (0.1-0.90); Monocytes Percent Manual 4 % (3-9); Neutrophils Absolute Manual 17.51 K/mm3 (1.3-6.7); Neutrophils Percent Manual 77 % (46-73); Total Cells Counted 100
[2025-07-18 06:57] LABS: Anisocytosis 1+; Burr Cells 1+; Schistocytes None Seen
[2025-07-18] MEDS: SODIUM CHLORIDE 0.9% IV 1,000 ML 125 ML IV CONT (07:02)
--- NOTE | 2025-07-18 09:16 | P.HP_ITS ---
H&P: HPI History of Present Illness Date/Time: 07/18/25 09:16 Chief Complaint: Vaginal bleeding Narrative: This patient is a 35-year-old female with incomplete miscarriage. We agreed to perform suction D& C. She is bleeding persistently. We have been able to get images of the endometrium due to unavailability of ultrasound. She has had a drop in her hemoglobin. We agreed to move forward with suction D&C. She understands risks, benefits, and alternatives. She has completed informed consent process is ready to proceed. The patient understands the details of the procedure. The procedure has been explained in detail. She understands the risks. She understands that injuries may occur that result in hospitalization, more surgery, and severe illness. She understands risk of hemorrhage and infection. She denies any chest pain or shortness of breath. She denies any nausea, vomiting, fever, chills. Review of Systems Review of Systems: All systems reviewed & are unremarkable except as noted in HPI and below Constitutional: Constitutional: Denies chills, Denies fatigue, Denies fever(s) and Denies weakness Eyes: Eyes: Denies blurry vision, Denies change in vision, Denies loss of peripheral vision, Denies loss of vision, Denies other visual disturbances and Denies eye pain ENT: Denies vertigo, Denies dizziness, Denies hearing loss, Denies mouth pain, Denies nasal obstruction, Denies neck mass and Denies neck pain Cardiovascular: Cardiovascular: Denies chest pain, Denies diaphoresis, Denies syncope, Denies leg edema and Denies dyspnea Respiratory: Respiratory: Denies chest congestion, Denies cough, Denies hemoptysis, Denies dyspnea and Denies wheezing Gastrointestinal: Gastrointestinal: Denies abdominal pain, Denies constipation, Denies diarrhea, Denies nausea and Denies vomiting Genitourinary: Genitourinary: Denies hematuria, Denies change in libido, Denies nocturia, Denies genital lesions, Denies flank pain and Denies urinary urgency Musculoskeletal: Musculoskeletal: Denies abnormal gait, Denies back pain, Denies myalgias, Denies arthralgias, Denies joint swelling, Denies muscle weakness and Denies neck pain Integumentary/Breasts: Skin/Breast: Denies swelling, Denies breast pain, Denies breast mass, Denies dry skin, Denies nipple discharge, Denies unusual bruising and Denies jaundice Neurologic: Denies Neuro-related abnormal movements, Denies Abnormal speech present, Denies abnormal gait, Denies behavioral changes, Denies confusion, Denies vertigo, Denies dizziness, Denies syncope, Denies loss of vision, Denies memory loss, Denies convulsions and Denies weakness Psychiatric: Psychiatric: Denies abnormal sleep pattern, Denies behavioral changes, Denies change in libido, Denies confusion, Denies depression, Denies anhedonia and Denies memory loss Endocrine: Endocrine: Reports no additional endocrine complaints, Denies change in libido and Denies fatigue Hematologic/Lymphatic: Hematologic/Lymphatic: Reports no additional hematologic/lymphatic complaints Allergic/Immunologic: Allergic/Immunologic: Reports no additional allergic/immunologic complaints and Denies wheezing PMFSH Past Medical History Medical History Anxiety Hypertension Depression Surgical History Surgical History H/O eye surgery multiple Family History Family History Mother Asthma Father Colon cancer Social History Social History Smoking status: Never smoker Second hand tobacco smoke exposure: No Alcohol intake: current Drinks per week: 1 Substance use: never Lack of Transportation: No Lack of Food: Never True Current Housing: I Have Housing Concerned About Future Housing: No Difficulty Paying Gas/Electric Bills: No Difficulty Paying for Meds: No Currently Unemployed: No Education: Bachelor's Degree Difficulty w/ Childcare or Family Care: No Spiritual care concerns: No Meds Home Medications and Allergies Home Medications ?Medication ?Instructions ?Recorded ?Confirmed ?Type bupropion HCl 150 mg tablet,12 hr 150 mg PO DAILY 12/0707/18/25 History sustained-release (Wellbutrin SR) sertraline 100 mg tablet 100 mg PO DAILY 12/27/2109/01 History ibuprofen 600 mg tablet 600 mg PO Q6H PRN pain #30 t abs 01/14/23 07/18/25 Rx hydroxyzine pamoate 25 mg capsule 25 mg PO DAILY PRN a nxiety 07/18/25 07/18/25 History Allergies Allergy/AdvReac Type Severity Reaction Status Date / Time No Known Allergies Allergy Verified 07/18/25 00:14 Vital Signs Vital Signs - 24 hr 07/17/25 17:53 07/17/25 17:57 07/17/25 18:01 Temperature 98.2 F Pulse Rate 115 H 118 H 126 H Respiratory Rate 20 20 22 H Blood Pressure 129/98 H 129/98 H 127/94 H Pulse Oximetry 98 99 99 Oxygen Delivery Room Air 07/17/25 18:04 07/17/25 18:16 07/17/25 18:31 Temperature 98.2 F Pulse Rate 124 H 96 89 Respiratory Rate 17 20 19 Blood Pressure 127/94 H 110/73 118/89 Pulse Oximetry 98 100 100 Oxygen Delivery 07/17/25 18:46 07/17/25 19:01 07/17/25 19:15 Temperature Pulse Rate 81 93 96 Respiratory Rate 12 26 H 16 Blood Pressure 124/86 109/82 Pulse Oximetry 100 99 100 Oxygen Delivery 07/17/25 19:16 07/17/25 19:30 07/17/25 19:30 Temperature Pulse Rate 100 103 H 99 Respiratory Rate 22 H 17 12 Blood Pressure 116/84 116/84 Pulse Oximetry 100 97 99 Oxygen Delivery 07/17/25 19:31 07/17/25 19:45 07/17/25 19:46 Temperature Pulse Rate 104 H 102 H 106 H Respiratory Rate 13 22 H 24 H Blood Pressure 110/86 114/68 Pulse Oximetry 100 100 100 Oxygen Delivery 07/17/25 20:00 07/17/25 20:01 07/17/25 20:31 Temperature Pulse Rate 95 112 H 127 H Respiratory Rate 11 L 10 L 20 Blood Pressure 109/76 136/85 Pulse Oximetry 98 100 100 Oxygen Delivery 07/17/25 20:31 07/17/25 20:47 07/17/25 21:02 Temperature Pulse Rate 128 H 124 H 84 Respiratory Rate 18 18 8 L Blood Pressure 136/85 112/90 77/56 L Pulse Oximetry 100 100 100 Oxygen Delivery 07/17/25 21:03 07/17/25 21:04 07/17/25 21:05 Temperature Pulse Rate 97 95 103 H Respiratory Rate 15 8 L 12 Blood Pressure 87/62 L 83/68 L 99/88 L Pulse Oximetry 100 100 100 Oxygen Delivery 07/17/25 21:16 07/17/25 21:31 07/17/25 21:47 Temperature Pulse Rate 110 H 112 H 85 Respiratory Rate 12 3 L 22 H Blood Pressure 105/67 115/81 94/73 L Pulse Oximetry 98 95 100 Oxygen Delivery 07/17/25 21:59 07/17/25 22:17 07/17/25 22:21 Temperature Pulse Rate 111 H 92 92 Respiratory Rate 31 H 16 26 H Blood Pressure 101/81 112/69 104/64 Pulse Oximetry 100 100 100 Oxygen Delivery 07/17/25 22:31 07/17/25 22:41 07/17/25 22:53 Temperature Pulse Rate 108 H 113 H 109 H Respiratory Rate 22 H 34 H 23 H Blood Pressure 112/73 117/95 H Pulse Oximetry 100 100 Oxygen Delivery 07/17/25 23:01 07/17/25 23:11 07/17/25 23:21 Temperature Pulse Rate 113 H 88 91 Respiratory Rate 23 H 16 Blood Pressure 102/76 114/72 97/65 L Pulse Oximetry 100 100 99 Oxygen Delivery 07/17/25 23:31 07/17/25 23:41 07/17/25 23:51 Temperature Pulse Rate 106 H 118 H 112 H Respiratory Rate 14 13 4 L Blood Pressure 110/75 118/88 107/70 Pulse Oximetry 100 100 100 Oxygen Delivery 07/18/25 00:17 07/18/25 00:25 07/18/25 01:31 Temperature 98.2 F 97.5 F L Pulse Rate 112 H 102 H 102 H Respiratory Rate 13 16 16 Blood Pressure 107/70 102/67 Pulse Oximetry 100 100 100 Oxygen Delivery Room Air 07/18/25 04:00 07/18/25 05:43 07/18/25 07:57 Temperature 97.5 F L 98.0 F Pulse Rate 115 H 118 H 102 H Respiratory Rate 16 16 Blood Pressure 95/67 L 90/61 L Pulse Oximetry 100 100 Oxygen Delivery 07/18/25 08:00 07/18/25 08:19 Temperature 98.2 F Pulse Rate 103 H Respiratory Rate 18 Blood Pressure 103/61 Pulse Oximetry 99 Oxygen Delivery Room Air Exam Const: General: cooperative, healthy appearing, comfortable and no acute distress Orientation/consciousness: oriented to person, oriented to place and oriented to time HENMT: Head: normal to inspection Ears: external ears normal Face/Nose/Sinus: Normal external nose present and normal facial exam Face and sinus: normal facial exam Eyes: General: appearance normal, both eyes and all related structures Neck: Neck: normal visual inspection, trachea midline and supple Resp: Auscultation: clear to auscultation bilaterally, no crackles, no rales, no rhonchi and no wheezes Cardio: Rate: regular rate Rhythm: regular rhythm Heart sounds: no click, no murmurs and no rubs GI: GI Palp: No abdominal tenderness, No Soft to palpation, No Tenderness to palpation present (GI) and No Palpable mass present Auscultation: normal bowel sounds Skin: General skin exam: normal color and no rashes or lesions noted Neuro: General: oriented to person, oriented to place and oriented to time Extrem: General: normal to inspection, no joint enlargement, no clubbing, cyanosis or edema, no pedal edema and no calf tenderness Psych: Appearance: grossly normal Mental Status: mental status grossly normal Speech and movement: Normal speech and movement present H&P: Results Labs Labs: Short CBC 07/17/25 07/17/25 07/18/25 Range/Units 18:14 21:53 06:07 WBC 11.5 H 21.1 H (4.5-10.0) K/mm3 Hgb 12.9 D 11.2 L 7.5 L D (12.0-15.0) g/dL Hct 39.1 34.4 L 24.1 L (37.0-47.0) % Plt Count 272 D 375 (150-375) k/mm3 [facility] 07/17/25 18:14 Sodium 134 L Potassium 3.8 Chloride 104 Carbon Dioxide 23 BUN 11 D Creatinine 0.66 L Glucose 103 Calcium 9.2 Liver Function 07/17/25 Range/Units 18:14 Total Bilirubin 0.3 (0.2-1.3) mg/dL AST 20 (14-36) U/L ALT 19 (6-35) U/L Alkaline Phosphatase 49 (38-126) U/L Albumin 3.8 (3.5-5.1) g/dL Assessment and Plan Assessment and plan (1) Incomplete miscarriage: Code(s): O03.4 - Incomplete spontaneous without complication Status: Acute Plan This patient is a 35-year-old female with incomplete miscarriage. We agreed to perform suction D& C. She is bleeding persistently. We have been able to get images of the endometrium due to unavailability of ultrasound. She has had a drop in her hemoglobin. We agreed to move forward with suction D&C. She understands risks, benefits, and alternatives. She has completed informed consent process is ready to proceed.
--- NOTE | 2025-07-18 09:21 | WPDHPUPDATE1 ---
History and Physical Update Update Date/Time: 07/18/25 09:21 History and Physical has been reviewed, including an updated exam of the patient. There are NO changes in the patient's condition. Risks, benefits, and alternatives have been discussed and questions answered. Patient agrees to proceed with procedure.
--- NOTE | 2025-07-18 10:49 | S_PTH ---
PATIENT: Estefania Navarro LOC: [id number] U#:[id number] AGE/SX: 35/F ROOM: 319 RE07/17/[address]: Himanshu Bartlett MD : 1990 BED: 01 DIS: 07/18/2025 SPEC #: [id number] RECD: 07/20/25 08:55 STATUS: ANNLast REHeidi #: [id number] [place]: 07/18/25 10:[address]: Himanshu Bartlett DEPT: [facility] Surgical RECD BY: Emma Downing ENTERED: 07/20/25 08:56 SP TYPE: Surgical OTHR DR: Beni Ryan, DO Ricardo Sorto, DO MD Liam Lozoya MD Tissues: A - Products of Conception Procedures: Hematoxylin and Eosin Stain Gross and Microscopic Level 4
[2025-07-18] MEDS: LACTATED RINGERS 1,000 ML 30 ML IV CONT (10:58)
--- NOTE | 2025-07-18 11:02 | P.OP_ITS ---
Procedure Note - Detailed Date of Procedure 07/18/25 Pre-op Diagnosis spontaneous , vaginal bleeding Post-op Diagnosis Same Procedure Performed Suction D&C Surgeon Himanshu Bartlett MD Anesthesia MAC Indications missed Findings normal-appearing vulva vagina and cervix to. Moderate amount of products conception within the uterus. 8 cm uterus Description of Procedure the patient was taken the operating room. She was prepped and draped in dorsal lithotomy position after induction of mac anesthesia. A speculum was placed in the vagina. Cervix grasped with tenaculum. The cervix was dilated to about 1 cm Using Mercedes dilators. A 8. [place] curved curette was used to perform suction D&C. The curette was introduced and vacuum was applied. The curette was removed over all surfaces of the intrauterine cavity multiple times. This was done until all the surfaces were clear and had the familiar grainy texture they can be felt through the instrument. A sharp curette was then used to curettage all the surfaces. The suction cup was then reapplied 1 more time to remove any debris. The instruments were removed. The speculum and tenaculum were removed. The patient tolerated the procedure well. She was taken recovery room stable condition. Estimated Blood Loss 50 Drains No Packing No Pathology Yes Complications No immediate complications Condition Stable Disposition PACU
--- NOTE | 2025-07-18 11:06 | P.PNAN_ITS ---
Anes - Initial Pre Proc Eval Procedure: Operation Date: 07/18/25 10:45 Proposed Procedures p D&C - Himanshu Bartlett MD Date/Time: 07/18/25 11:06 Surgeon: Himanshu Bartlett MD Pre Op Diagnosis: spontaneous , vaginal bleeding Patient Data Age: 35 Gender: F Height: 1.57 m Weight: 105.7 kg Last Vital Signs Temp 36.3 C L 07/18/25 10:58 Pulse 108 H 07/18/25 10:58 Resp 18 07/18/25 10:58 BP 95/60 L 07/18/25 10:58 Pulse Ox 100 07/18/25 10:58 O2 Del Method Simple Face Mask 07/18/25 10:58 O2 Flow Rate 8 07/18/25 10:58 Allergies Allergy/AdvReac Type Severity Reaction Status Date / Time No Known Allergies Allergy Verified 07/18/25 00:14 Home Medications ?Medication ?Instructions ?Recorded ?Confirmed ?Type bupropion HCl 150 mg tablet,12 hr 150 mg PO DAILY 12/0707/18/25 History sustained-release (Wellbutrin SR) sertraline 100 mg tablet 100 mg PO DAILY 12/27/2109/01 History ibuprofen 600 mg tablet 600 mg PO Q6H PRN pain #30 t abs 01/14/23 07/18/25 Rx hydroxyzine pamoate 25 mg capsule 25 mg PO DAILY PRN a nxiety 07/18/25 07/18/25 History Laboratory Tests 07/17/25 07/17/25 07/18/25 18:14 21:53 06:07 WBC 11.5 H K/mm3 21.1 H K/mm3 (4.5-10.0) (4.5-10.0) RBC 4.54 M/mm3 2.65 L M/mm3 (4.2-5.4) (4.2-5.4) Hgb 12.9 D g/dL 11.2 L g/dL 7.5 L D g/dL (12.0-15.0) (12.0-15.0) (12.0-15.0) Hct 39.1 % 34.4 L % 24.1 L % (37.0-47.0) (37.0-47.0) (37.0-47.0) MCV 86.1 fl 90.9 D fl (80-100) (80-100) MCH 28.4 pg 28.3 pg (26-34) (26-34) MCHC 33.0 g/dl 31.1 L g/dl (32-36) (32-36) RDW 13.3 % 13.8 % (11.5-14.5) (11.5-14.5) Plt Count 272 D k/mm3 375 k/mm3 (150-375) (150-375) MPV 9.9 fl 10.4 fl (7.4-10.4) (7.4-10.4) Immature Gran % (Auto) 0.3 % Not Reportable (0-0.5) Neut % (Auto) 71.1 % Not Reportable (45.5-73.1) Lymph % (Auto) 22.5 % Not Reportable (18.3-44.2) Cross % (Auto) 4.8 % Not Reportable (2.6-8.5) Eos % (Auto) 1.0 % Not Reportable (0-4.4) Baso % (Auto) 0.3 % Not Reportable (0.2-1.2) Lymph # (Auto) 2.58 K/mm3 Not Reportable (0.9-3.2) Cross # (Auto) 0.6 K/mm3 Not Reportable (0.1-0.6) Eos # (Auto) 0.1 K/mm3 Not Reportable (0-0.3) Baso # (Auto) 0.0 K/mm3 Not Reportable (0.0-0.1) Abs Immat Gran (auto) 0.04 H K/mm3 Not Reportable (0.00-0.031) Absolute Neuts (auto) 8.1 H K/mm3 Not Reportable (1.3-6.7) Absolute Nucleated RBC 0.000 K/mm3 Not Reportable (0.0-0.012) Total Counted 100 Neutrophils % (Manual) 77 H % (46-73) Band Neutrophils % 6 % (0-6) Lymphocytes % (Manual) 13 L % (18-44) Monocytes % (Manual) 4 % (3-9) Nucleated RBC % 0.0 % Not Reportable (0.0-0.2) Abs Neuts (Manual) 17.51 H K/mm3 (1.3-6.7) Abs Lymphs (Manual) 2.74 K/mm3 (1.1-4.5) Abs Monocytes (Manual) 0.84 K/mm3 (0.1-0.90) Platelet Estimate Adequate (Adequate) Anisocytosis 1+ [place] Cells 1+ Schistocytes None seen PT 13.5 Seconds (11.1-14.7) INR 1.0 APTT 30.4 Seconds (22.3-36.8) Sodium 134 L mmol/L (137-145) Potassium 3.8 mmol/L (3.4-5.0) Chloride 104 mmol/L (98-107) Carbon Dioxide 23 mmol/L (22-30) Anion Gap 7 mmol/L (4-12) BUN 11 D mg/dL (7-17) Creatinine 0.66 L mg/dL (0.7-1.0) Estim Creat Clear Calc 114 ml/min Estimated GFR > 60 (59 - ) Glucose 103 mg/dL (65-110) Calcium 9.2 mg/dL (8.4-10.2) Total Bilirubin 0.3 mg/dL (0.2-1.3) AST 20 U/L (14-36) ALT 19 U/L (6-35) Alkaline Phosphatase 49 U/L (38-126) Total Protein 6.8 g/dL (6.3-8.2) Albumin 3.8 g/dL (3.5-5.1) Beta HCG, Quant 73945.00 mIU/ML Blood Type A Positive Antibody Screen Negative Screen TNP Baby's Blood Type TNP Baby's EMMETT Not Reportable Doses of RhIg Required 0 Crossmatch See Detail Patient hx anesthesia problems: none Family hx anesthesia problems: none Results Review: All pre-operative results and documents have been reviewed as part of the pre- operative evaluation. [facility] Past Medical History Medical History Anxiety Hypertension Depression Surgical History Surgical History H/O eye surgery multiple Family History Family History Mother Asthma Father Colon cancer Social History Social History Smoking status: Never smoker Second hand tobacco smoke exposure: No Alcohol intake: current Drinks per week: 1 Substance use: never Lack of Transportation: No Lack of Food: Never True Current Housing: I Have Housing Concerned About Future Housing: No Difficulty Paying Gas/Electric Bills: No Difficulty Paying for Meds: No Currently Unemployed: No Education: Bachelor's Degree Difficulty w/ Childcare or Family Care: No Spiritual care concerns: No Anes - Eval Final PreProcedure Day of Procedure 07/18/25 11:06 Patient weight: morbidly obese Heart: regular rate and rhythm Lungs: clear to auscultation Airway: Mallampati scale class II Neurological: alert and oriented Last oral intake: >/= 8 hours ASA classification: III Emergent: no Anesthetic plan: proceed Anesthesia type and monitoring: general GIVS and standard monitoring Results Review: All pre-operative results and documents have been reviewed as part of the pre- operative evaluation. Informed Consent: The patient's anesthetic plan and its attendant risks and benefits were discussed with the patient/family/POA. Questions were solicited and answers provided to the satisfaction of the patient/family/POA.
[2025-07-18] MEDS: ceFAZolin 1 GM in SODIUM CHLORIDE 0.9% IV 50 ML 100 ML IVPB (11:29)
--- NOTE | 2025-07-18 18:53 | PM.DS ---
DS: Admitting Diagnosis Discharge Date 07/18/2025 Admitting Diagnosis incomplete miscarriage DS: Discharge Diagnosis Discharge Diagnosis (1) Spontaneous : Code(s): O03.9 - Complete or unspecified spontaneous without complication Status: Acute DS: Summary Hospital Course Hospital Course: patient admitted through the emergency department for hemorrhage during an incomplete miscarriage. She was observed overnight and then had a suction D and C the following morning. She will observe for a period of time after the procedure and discharged home. She received uterine blood. She was stable throughout her stay at the hospital. Time Spent with Patient Time attestation: Total time spent providing and/or coordinating discharge services: DS: Data Data Completed and Pending Pending studies at discharge: Pending at discharge 07/18/25 10:49 Surgical [PTH] Routine Labs on day of discharge: Labs from last 24 hours 07/18/25 07/17/25 07/17/25 06:07 21:53 18:14 WBC 21.1 H RBC 2.65 L Hgb 7.5 L D 11.2 L Hct 24.1 L 34.4 L MCV 90.9 D MCH 28.3 MCHC 31.1 L RDW 13.8 Plt Count 375 MPV 10.4 Immature Gran % (Auto) Not Reportable Neut % (Auto) Not Reportable Lymph % (Auto) Not Reportable [place] % (Auto) Not Reportable Eos % (Auto) Not Reportable Baso % (Auto) Not Reportable Lymph # (Auto) Not Reportable [place] # (Auto) Not Reportable Eos # (Auto) Not Reportable Baso # (Auto) Not Reportable Abs Immat Gran (auto) Not Reportable Absolute Neuts (auto) Not Reportable Absolute Nucleated RBC Not Reportable Total Counted 100 Neutrophils % (Manual) 77 H Band Neutrophils % 6 Lymphocytes % (Manual) 13 L Monocytes % (Manual) 4 Nucleated RBC % Not Reportable Abs Neuts (Manual) 17.51 H Abs Lymphs (Manual) 2.74 Abs Monocytes (Manual) 0.84 Platelet Estimate Adequate Anisocytosis 1+ [place] Cells 1+ Schistocytes None seen Beta HCG, Quant 58797.00 Blood Type A Positive Antibody Screen Negative Screen TNP Baby's Blood Type TNP Baby's EMMETT Not Reportable Doses of RhIg Required 0 Crossmatch See Detail Discharge Plan Discharge Discharging Clinician: Himanshu Bartlett Patient Disposition: Home Activity: pelvic rest Diet: regular Patient Instructions: Antibiotic Form Patient Language: Icelandic Stand Alone Forms: General Discharge Information Follow-up/Referrals: Himanshu Bartlett MD [Physician, DATA MANAGEMENT] - 1 Week Discharge Medications: No Action sertraline 100 mg tablet 100 mg PO DAILY bupropion HCl [Wellbutrin SR] 150 mg tablet sustained-release 12 hr 150 mg PO DAILY ibuprofen 600 mg tablet 600 mg PO Q6H PRN (Reason: pain) Qty: 30 0RF hydroxyzine pamoate 25 mg capsule 25 mg PO DAILY PRN (Reason: anxiety) Date of admission: 07/17/25 22:19 Primary Care Provider: MacarioRicardo Admitting Provider: Himanshu Bartlett Attending physician on admission: Himanshu Bartlett Condition: Stable
[2025-07-18 19:20] LABS: Hematocrit 22.7 % (37.0-47.0); Hemoglobin 7.4 g/dL (12.0-15.0)
== END 2025-07-18 21:05 | disposition home or self-care (01) ==
LOC: ANHED 19:05 → ANH3MEDSUR 23:41
PROVIDERS: Admitting Provider Obstetrics & Gynecology; Emergency Provider Physician Assistant; PCP Student in an Organized Health Care Education/Training Program; Visit Provider Obstetrics & Gynecology
PROC: (CPT 59812; principal; 2025-07-18 10:00)
DX: O03.4 Incomplete spontaneous abortion without complication (principal); I10 Essential (primary) hypertension; I45.10 Unspecified right bundle-branch block; R11.0 Nausea; F41.8 Other specified anxiety disorders; Z82.5 Family history of asthma and other chronic lower respiratory diseases; Z80.0 Family history of malignant neoplasm of digestive organs
CPT/HCPCS: 59812; 36415; 36430; 80053; 84702; 85014; 85018; 85025; 85461; 85610; 85730; 86850; 86900; 86901; 86923; 88305; 93005; 96361; 96374; 96375; 99285; A9270; G0378; J0690; J2250; J2270; J2405; J2704; J3010; J7030; J7120; P9016

== ENCOUNTER 2025-07-31 09:00 | Observation (INO) | payer OTHER, SELFPAY ==
[2025-07-31] VITALS (10 sets, daily range): BP systolic 118–148; BP diastolic 75–102; PULSE 70–83; RESP 16–20; TEMP 36.4–36.8; O2SAT 100; BMI 42.0
--- OUTSIDE RECORDS SUMMARY | 2025-07-31 08:33 | XMS_ITS | Clinical Summary ---
Author Organization [facility] [employer] Address [address] [place] [address] Care Team Providers Care Paring Machine Operator Name Role Phone Unavailable Primary Care Provider Unavailabl e Source Comments [facility],non-owned Affiliates and Associated Physician Practices is amultiple site organization consisting of ambulatory clinics and hospital sitesin [place], [place], [place] and [place]. This disclosure is being madepursuant to the Care Everywhere program and may not contain all information available regarding this patient. Last updated 18.[facility] [employer] Immunizations Immunization Administration Dates Next Due TDAP [...] of 3 - 19+ 3-dose series) 2008 PAP SMEAR 2010 HPV VACCINE (1 - 3-dose SCDM series) 2016 DEPRESSION SCREENING 10/08/2024 COVID-19 VACCINE ( - 2023-2 5 season) 2025 INFLUENZA VACCINE (#1) 2025 DTAP/TDAP/TD VACCINES (2 [...] patient's age to complete this topic Insurance [facility] SELF PAY NO INSURANCE Member Subscriber Plan / Payer (Ef fective for All Dates) Name:Estefania Navarro Member ID:Not on file Relation to Subscriber:Not on file Name:ESTEFANIA NAVARRO Subscriber ID:Not on file (Home) Address: [address] [place] [id number] Payer ID:Not on file Group ID:Not on file Type:Self Pay Address: [place], [place]
--- OUTSIDE RECORDS SUMMARY | 2025-07-31 08:34 | XMS_ITS ---
Author Organization Unknown ENCOUNTERS Encounter Performer Location Date Diagnosis Diagnosis Status Inpatient [facility] [address] [place] [address] [id number] NAVEEN Observation [facility] [address] [place] [address] [id number] Outpatient [facility] [address] [place] [address] [id number] Outpatient [facility] [address] [place] [address] [id number] NAVEEN Outpatient [facility] [address] [place] [address] [id number] NAVEEN Pre Admit [facility] [address] [place] [address] [id number] Outpatient [facility] [address] [place] [address] [id number] NAVEEN *Note: Encounters from your own facility or health system may be excluded. Allergies, Adverse Reactions, Alerts Allergen Type Severity Identification Date Medications Name Date Quantity Days Supplied GPI Number
--- OUTSIDE RECORDS SUMMARY | 2025-07-31 08:34 | XMS_ITS | Data Portability ---
Author Organization [facility] Address [address] [place] [address] [place] [address] Care Team Providers Care Ux Specialist Name Role Phone KEITH MAURICE Primary Care Provider Assessment Encounter Date Assessment Date Assessment LastModified by Organization Details LastModified Time 06/30/2025 06/30/2025 Patient not seen due to early IUP vs blighted ovum; repeat in 1 week Not available 06/30/2025 17:39:51 Plan of Treatment Reminders Order Date Submit Date Provider Last Modified By Organization Details Last Modified Time Details Appointments None recorded. Lab CBC 2024 [facility] Outpatient Registration Lab/Ekg, [address] [place] [address] [address], [place], [address], 17:16:26 Referral None recorded. Procedures None recorded. Surgeries None recorded. Imaging US, obstetric, transvagin al 2024 025 [email or web address], [address], [address], [place], [address], 16:47:30 US, obstetric, transvagin al 2024 025 [facility], [facility] [address], [place], [address], 19:03:36 Medication Orders Cytotec 200 mcg tablet 2024 025 [facility] [place], [address], 16:05:46 Patient TargetsNo targets recorded. Patient InstructionsNo instructions recorded. Reason for Referral None Reported. Results Created Date Observation Date Name Description Value Unit Range Abnormal Flag Note LastModifiedBy Organization Detail LastModifiedTime 07/27/2007/27/2025 CBC W/DIF F WBC 7.9 10'3/ uL 3.5-10 .5 Not Available [facility] (Lab) [address], [place], [address], 07/28/2025 10:22:51 07/27/20 25 07/27/2025 CBC W/DIF F RBC 2.45 10'6/ uL (based on docume nted legal sex) 3.80-5 .20 low Not Available [facility] (Lab) [address], [place], [address], 07/28/2025 10:22:51 07/27/20 25 07/27/2025 CBC W/DIF F HGB 6.7 g/dL (based on docume nted legal sex) 11.6-1 5.4 low Not Available [facility] (Lab) [address], [place], [address], 07/28/2025 10:22:51 07/27/20 25 07/27/2025 CBC W/DIF F HCT 22.7 % (based on docume nted legal sex) 34.0-4 5.0 low Not Available [facility] (Lab) [address] [place], [address], 07/28/2025 10:22:51 07/27/20 25 07/27/2025 CBC W/DIF F MCV 92.7 fL 80.0-9 9.0 Not Available [facility] (Lab) [address], [place], [address], 07/28/2025 10:22:51 07/27/20 25 07/27/2025 CBC W/DIF F MCH 27.3 pg 27.0-3 4.0 Not Available [facility] (Lab) [address], [place], [address], 07/28/2025 10:22:51 07/27/20 25 07/27/2025 CBC W/DIF F MCHC 29.5 g/dL 32.0-3 5.5 low Not Available [facility] (Lab) [address], [place], [address], 07/28/2025 10:22:51 07/27/20 25 07/27/2025 CBC W/DIF F RDW 14.6 % 11.0-1 5.0 Not Available [facility] (Lab) [address], [place], [address], 07/28/2025 10:22:51 07/27/20 25 07/27/2025 CBC W/DIF F plt 282 10'3/ uL 150-40 0 Not Available [facility] (Lab) [address], [place], [address], 07/28/2025 10:22:51 07/27/20 25 07/27/2025 CBC W/DIF F MPV 10.6 fL 8.8-12 .1 Not Available [facility] (Lab) [address], [place], [address], 07/28/2025 10:22:51 07/27/20 25 07/27/2025 CBC W/DIF F NRBC's 0.0 % 0.0 Not Available [facility] (Lab) [address], [place], [address], 07/28/2025 10:22:51 07/27/20 25 07/27/2025 CBC W/DIF F absolute NRBCs 0.0 10'3/ uL no refere nce range establ ished Not Available [facility] (Lab) [address], [place], [address], 07/28/2025 10:22:51 07/27/20 25 07/27/2025 CBC W/DIF F neutrophils 61.4 % 34.0-7 3.0 Not Available [facility] (Lab) [address], [place], [address], 07/28/2025 10:22:51 07/27/20 25 07/27/2025 CBC W/DIF F lymphocytes 29.3 % 15.0-5 0.0 Not Available [facility] (Lab) [address], [place], [address], 07/28/2025 10:22:51 07/27/20 25 07/27/2025 CBC W/DIF F monocytes 6.8 % 1.0-15 .0 Not Available [facility] (Lab) [address], [place], [address], 07/28/2025 10:22:51 07/27/20 25 07/27/2025 CBC W/DIF F eosinophils 1.8 % 0.0-8. 0 Not Available [facility] (Lab) [address], [place], [address], 07/28/2025 10:22:51 07/27/20 25 07/27/2025 CBC W/DIF F basophils 0.3 % 0.0-2. 0 Not Available [facility] (Lab) [address] [place], [address], 07/28/2025 10:22:51 07/27/20 25 07/27/2025 CBC W/DIF F immature granulocytes 0.4 % no define d refere nce range Immat ure Granu locyt es (IG) repre sents autom ated enume ratio n of Metam yeloc ytes, Myelo cytes and Promy elocy caitlin when IG is < 5%. Blast s are not inclu ded in IG and repor kevyn separ ately if prese nt. Not Available [facility] (Lab) [address], [place], [address], 07/28/2025 10:22:51 07/27/20 25 07/27/2025 CBC W/DIF F absolute neutrophils 4.8 10'3/ uL 1.5-8. 0 Not Available [facility] (Lab) [address], [place], [address], 07/28/2025 10:22:51 07/27/20 25 07/27/2025 CBC W/DIF F absolute lymphocytes 2.3 10'3/ uL 1.0-4. 0 Not Available [facility] (Lab) [address], [place], [address], 07/28/2025 10:22:51 07/27/20 25 07/27/2025 CBC W/DIF F absolute monocytes 0.5 10'3/ uL 0.2-1. 0 Not Available [facility] (Lab) [address], [place], [address], 07/28/2025 10:22:51 07/27/20 25 07/27/2025 CBC W/DIF F absolute eosinophils 0.1 10'3/ uL 0.0-0. 6 Not Available [facility] (Lab) [address], [place], [address], 07/28/2025 10:22:51 07/27/20 25 07/27/2025 CBC W/DIF F absolute basophils 0.0 10'3/ uL 0.0-0. 3 Not Available [facility] (Lab) [address], [place], [address], 07/28/2025 10:22:51 07/27/20 25 07/27/2025 CBC W/DIF F absolute immature granulocytes 0.0 10'3/ uL 0.00-0 .10 Refer ence range s for nonbi nary/ inter sex or unspe cifie d gende r patie nts have not been estab lishe d. Pleas e refer to the follo wing table for range s estab lishe d for cisge nder patie nts and evalu ate in the clini karine jus xt of the indiv idual patie nt: https ://olga lora book. nm.or g/gen derx Not Available [facility] (Lab) [address], [place], [address], 07/28/2025 10:22:51 06/30/20 25 06/30/2025 US, obste tric, trans vagin al No observ ation record ed. [email or web address] [address], [place], [address], 06/30/2025 18:01:32 06/30/20 25 06/30/2025 US, obste tric, trans vagin al No observ ation record ed. [address], [place], [address], 06/30/2025 18:53:23 07/07/20 25 07/07/2025 US, obste tric, limit ed No observ ation record ed. [email or web address] [address], [place], [address], 07/08/2025 15:39:07 07/07/20 25 07/07/2025 US, obste tric, trans vagin al No observ ation record ed. [email or web address] [facility] [address], [place], [address], 07/07/2025 16:46:12 Result Notes None recorded. Procedures Surgical History Date Name Laterality Status Provider Name and Address Organization Details Recorded Time 5 Dilation and Curettage completed Loreta Fernandez [facility] 07/27/2025 17:03:28 4 Date of Last Pap Smear completed Ibeth Gauthier [facility] 07/07/2025 15:48:56 Imaging Results None recorded. Procedure Notes None recorded. Medical Equipment None Reported. Allergies No known drug allergies Medications Name Sig Start Date Stop Date Status Note LastModified by Organization Details LastModified Time sertraline 100 mg tablet TAKE 1 TABLET BY MOUTH ONCE DAILY active Not Available Not Available No t Available amoxicillin 875 mg tablet TAKE 1 TABLET BY MOUTH TWICE DAILY FOR 7 DAYS 07/27 completed Not Available Not Available Not Available misoprostol [address] 4 TABLETS VAGINALLY ONE TIME 07/27 completed Not Available Not Available Not Available polymyxin B sulfate 10,000 unit-trimet hoprim 1 mg/mL eye drops INSTILL 1 DROP INTO RIGHT EYE EVERY 3 HOURS FOR 10 DAYS WHILE AWAKE . DO NOT EXCEED 6 DOSES IN 24 HOURS. 07/27 completed Not Available Not Available Not Available hydroxyzine pamoate 25 mg capsule TAKE 1 CAPSULE BY MOUTH ONCE DAILY NEEDED FOR ANXIETY active Not Available Not Available No t Available bupropion HCl XL 150 mg 24 hr tablet, extended release TAKE 1 TABLET BY MOUTH ONCE DAILY active Not Available Not Available No t Available sertraline 07/27 completed Not Available Not Available Not Available hydroxyzine pamoate 07/27 completed Not Available Not Available Not Available active Not Available Not Avai lable Not Available bupropion HCl (bulk) 07/27 completed Not Available Not Available Not Available Vitals Date Recorded Body weight Systolic And Diastolic Provider Name and Address Organization Details Last Updated DateTime 07/07/2025 274963.43 g 148/94 mm[Hg] Ibeth Gauthier [facility] 07/07/2025 15:48:42 Date Recorded Body height Body mass index (BMI) Body weight Systolic And Diastolic Provider Name and Address Organization Details Last Updated DateTime 07/27/2025 160.02 cm 41.8 kg/m2 384510.8 g 133/85 mm[Hg] Loreta Fernandez [facility] 07/27/2025 17:03:15 Social History Question Answer Notes LastModified by Organizat ion Details LastModified Time Do You Have An Advance Directive? No [email or web address] Information n ot available 07/07/2025 Are You Blind Or Do You Have Difficulty Seeing? No [email or web address] Information not available 07/07/2025 What Is Your Level Of Caffeine Consumption? Heavy [email or web address] Information not available 07/07/2025 How Much Tobacco Do You Chew? None [email or web address] Information not available 07/07/2025 In The 14 Days Before Symptom Onset, Have You Had Close Contact With A Laboratory-confirme d COVID-19 While That Case Was Ill? No [email or web address] Information n ot available 07/07/2025 In The 14 Days Before Symptom Onset, Have You Had Close Contact With A Person Who Is Under Investigation For COVID-19 While That Person Was Ill? No [email or web address] Information not available 07/07/2025 Have You Been To An Area Known To Be High Risk For COVID-19? No [email or web address] Information not available 07/07/2025 Are You Deaf Or Do You Have Serious Difficulty Hearing? No [email or web address] Information not available 07/07/2025 What Is The Highest Grade Or Level Of School You Have Completed Or The Highest Degree You Have Received? [id number] [email or web address] Information not available 07/07/2025 Are There Any Guns Present In Your Home? No [email or web address] Information not available 07/07/2025 Do You Use Protection During Sex? No Information not available 07/07/2025 Do You Use Your Seat Belt Or Car Seat Routinely? Yes [email or web address] Information not available 07/07/2025 Do You Have Smoke And Carbon Monoxide Detectors In Your Home? Yes [email or web address] Information not available 07/07/2025 How Much Tobacco Do You Smoke? No [email or web address] Information not available 07/07/2025 Do You Use Sunscreen Routinely? No Information not available 07/07/2025 Have You Used IV Drugs? No [email or web address] Information not available 07/07/2025 Sex: Unknown Functional Status Question Answer Note LastModified by Organizat ion Details LastModified Time Do you use any illicit or recreational drugs? No Information not available 07/07/2025 What is your level of alcohol consumption? Occasional [email or web address] Information not available 07/07/2025 Are you able to walk independently without assistance or assistive devices? 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 Occasional [email or web address] Information not available 07/07/2025 Mental Status Question Answer Note LastModified by Organization D etails LastModified Time Do you feel stressed (tense, restless, nervous, or anxious, or unable to sleep at night)? [id number] [email or web address] Information not available 07/07/2025 Family History Relationship Description Onset Age of this Age Resolved Age Notes LastModified by Organization Details LastModified Time Unspecified Relation Family history unknown [email or web address] Not available 2024 15:48:49 Medical History Condition Response Allergies (Food, seasonal, environmental ) N Other N Breast Cancer N Drug/Latex Allergies/Reactions N Blood Transfusion N Dermatologic Disorders N Lung Disease N Defects or Inherited Disease N Breast Problem N Gestational Diabetes N Hematologic disorders N Anesthesia Complications N History of STI N Deep Vein Thrombosis N Polycystic ovary syndrome N Anxiety Disorder Y Autoimmune disease N Arthritis N Infertility N Polyps N Acid Reflux (GERD) N History of abnormal pap N Cancer N Stroke N Varicosities N Neurologic/Epilepsy N Endometriosis N High Cholesterol N Headaches N Fibromyalgia N Kidney Disease N Heart Problems N Kidney or Bladder Problems N Thyroid Problems N GI Problems N Eating Disorder N Anemia N Art (IVF or FET) N Psychiatric Illness N Ovarian Cancer N Diabetes N Pulmonary (TB, Asthma) N Hepatitis/Liver Disease N No Past Medical History N Eczema N Urinary Tract Infection N Abuse/Domestic Violence N Asthma N Trauma/Violence N Depression/ depression Y Heart Disease N Pre-Eclampsia N Hypertension N Osteoporosis N Thrombophilias N Gynecological History Statement/Question Response Date of LMP 04/30/2025 On BCP's at Conception? N N Was last menstrual period normal Y STIs/STDs N HPV Vaccine Y Duration of Flow (days) 5 Current Control Method None Age at First Child 32 Are cycles usually normal Y Frequency of Cycle (Q days) 28 Sexually Active? Y Unknown Menses Monthly Y Age of first menstrual cycle 12 Date of Last Pap Smear 08/12/2024 Sexual Problems? N LMP Approximate N Obstetrics History GPAL:G 1 P 0 0 1 0 Type Value Spontaneous 1 Living 0 Total 1 Past Encounters Encounter ID Performer Location Encounter Start Date Encounter Closed Date Diagnosis/Indication Diagnosis SNOMED-CT Code Diagnosis ICD10 Code Diagnosis IMO Codes Diagnosis Note [id number] MARIJA WISDOM MD [facility] [address] [address] 06/30/2025 16:16:22 06/30/2025 16:59:42 Uncertain viability of 393059133 O36.80X0 O26.841 Z3A.01 [id number] MARIJA WISDOM MD [facility] [address],[place] [address] 06/30/2025 16:16:39 06/30/2025 17:49:57 [id number] MARIJA WISDOM MD [facility] [address],[place] [address] 07/07/2025 15:28:36 07/07/2025 16:06:31 Blighted ovum 40338609 O02.0 Z3A.00 [id number] MARIJA WISDOM MD [facility] [address],[place] [address] 07/07/2025 15:29:22 07/07/2025 16:09:22 Incomplete miscarriage 969972350 O03.4 075354 - c/w missed miscarriag e today, no FP or YS seen, empty gestationa l sac- denies cramping or bleeding- discussed risks and benefits of expectant vs medical vs surgical management - discussed bleeding precaution s- patient desires medical management , rediscusse d risks of this management options and return precaution s [id number] Himanshu Bartlett MD [facility] [address],[place] [address] 07/27/2025 16:56:00 07/27/2025 19:29:04 Anemia due to blood loss 347022159 D50.0 98972 Incomplete miscarriage 240183386 O03.4 143885 this patient is a 35-year-ol d female presents for follow-up from miscarriag e and hemorrhage . Patient had an incomplete miscarriag e and was seen at the hospital for hemorrhage . Suction D&C was performed. She was severely anemic during her hospital stay. She was transfused 2 units. Her hemoglobin near discharge was 7. She likely continues to be severely anemic. We will check her blood counts today. We can consider transfusio n. Patient reports headaches, fatigue, shortness of breath occasional ly with exertion. She has not lost consciousn ess and does not become dizzy. She will follow-up for urine test in 2 weeks. We will contact her with the results of her hemoglobin . I spent over 20 minutes on her care in total. Health Concerns Section Related Observation LastModified by Organization Detai ls LastModified Time None Recorded Concern Status LastModified by Organization Details LastModified Time None Recorded Advance Directives Directive N: Payers Insurance Date Sequence Insurance Name Policy Number Policy Hernandez Covered Member ID Hernandez Member ID Guarantor Name 07/27/2025 1 [facility] [id number] Estefania Navarro [id number] Estefania Navarro Notes Date Note Type Note Provider Name and Address Organization Details Recorded Time 07/07/2025 text/html ROS as noted in the HPI Patient presents for ultrasound follow up. Was diagnosed with blighted ovum today, with empty gestational sac and no evolution of since last week. No YS or FP seen. Denies bleeding or cramping. MARIJA WISDOM MD [address], [place], [address], [facility] 07/07/2025 16:08:18 07/27/2025 text/html this patient is a 35-year-old female presents for follow-up from miscarriage and hemorrhage. Patient had an incomplete miscarriage and was seen at the hospital for hemorrhage. Suction D&C was performed. She was severely anemic during her hospital stay. She was transfused 2 units. Her hemoglobin near discharge was 7. She likely continues to be severely anemic. We will check her blood counts today. We can consider transfusion. Patient reports headaches, fatigue, shortness of breath occasionally with exertion. She has not lost consciousness and does not become dizzy. She will follow-up for urine test in 2 weeks. We will contact her with the results of her hemoglobin. Himanshu Bartlett MD [address], [place], [address], [facility] 07/27/2025 18:22:07 OBGyn Episode Ob Episode Information Episode Created Date Number of Fetuses Patient Bloodtype Patient rh Status Prepregnancy Weight lbs Domestic Partner Domestic Partner Phone Father Name Typesetting Supervisor Status 07/27/20 25 1 CLOSED Fetus Data First Name Last Name Admitted to NICU Weight (g) Sex Living Outcome Pediatric Complications Fetus ID Race Codes Race Delivery Type , Spontane ous [id number] Jaciel Calculation Initial Jaciel Date Initial Exam Date Initial Exam Provider Initial Ultrasound Date Last Menstrual Period Date Ultra Sound Weeks Gestation 0 Eighteen To Twenty Week Jaciel Update Ultra Sound Date Fundal Height At Umbil Quickening Date Ultra Sound Latest Weeks Gestation Final Jaciel Confirmed By Final Jaciel Confirmed Date Final Jaciel Date Ultra Sound Latest Days Gestation 0 0 Menstrual History Last Menstrual Date Menses Monthly On Bcp Conception Prior Menses Frequency Hcg Plus Date Menarche Onset Age Delivery Information Delivery Date Delivery Type Labor Anesthesia Weeks Gestation Incision Type Labor Labor Length Hrs Delivered By Post Complications Tubal Sterilization Discharge Date Comments 5 Discharge Information Feeding Method Contraceptive Method Maternal HG B and HCT Levels
--- OUTSIDE RECORDS SUMMARY | 2025-07-31 08:34 | XMS_ITS | Clinical Summary ---
Author Organization [facility] Address [facility] [place] [address] Care Team Providers Care Hot Dip Tinning Supervisor Name Role Phone Ricardo Sorto Primary Care Provider + Allergies No known [...] Active Active Problems No known active problems Encounters Date Type Department Care Team Description 07/18/2025 Scan [facility] Scanned, [facility] Procedure (SCAN); Pathology (SCAN) 07/17/2025 Scan [facility] Scanned, [facility] 06/03/2025 Scan [facility] Scanned, [facility] Lab (SCAN) 06/01/2025 Scan [facility] Scanned, [facility] Lab (SCAN) from Last 3 Months Immunizations Immunization Administration Dates Next Due Tdap [...] 30 to 64) Every 5 Years 2019 PHQ-2 (Physician Moffett) 10/08/2024 Cervical Cancer Screening Pa p Smear (Age 30 to 64) Every 3 Years 12/13/2024 12/13/2021, 12/07/2020 Cervical Cancer Screening wi th HPV 12/13/2024 COVID-19 Vaccine (2024-2 6 season) 2025 09/29/2021, 12/25/2020, 11/27/2020 Influenza Adult (#1) 2025 DTaP, Tdap and Td Vaccines ( 3 - Td or Tdap) 03/29/2028 03/29/2018, 04/27/2016 Hepatitis C Completed 04/12/2022 Hepatitis A Vaccines Aged Out No long er eligible based on patient's age to complete this topic Meningococcal B Vaccine Aged Out No l [...] Procedure Name Priority Date/Time Associated Diagnosis Comments PATHOLOGY GENERIC (SCAN ORDER) 07/18/2025 PROCEDURE GENERIC (SCAN ORDER) 07/18/2025 OUTSIDE LAB (SCAN ORDER) 06/03/2025 OUTSIDE LAB (SCAN ORDER) 06/01/2025 HEPATITIS C ANTIBODY Routine 04/12/2022 9:29 AM CDT Need for hepatitis C screening test OUTSIDE CYTOPATH CERV/VAG INTERPRET (PAP) (SCAN ORDER) 12/13/2021 from Last 3 Months or Most Recently Relevant to Health Maintenance Results * PATHOLOGY GENERIC (SCAN ORDER) (07/18/2025) 07/18/2025 us [facility] Scanned SCANNING Final Resu lt * PROCEDURE GENERIC (SCAN ORDER) (07/18/2025) 07/18/2025 us [facility] Scanned SCANNING Final Resu lt * OUTSIDE LAB (SCAN ORDER) (06/03/2025) Only the most recent of2 resultswithin the time period is included. 06/03/2025 [facility] Scanned SCANNING Final Resu lt * HEPATITIS C AB ([facility] ONLY) (04/12/2022 9:29 AM CDT) HEPATITIS C AB NON-REACTI VE NON-REACT LEIGH ANN 04/12/2022 8:12 PM CDT [facility] Comment: ANTIBODIES TO HCV NOT DETECTED. DOES NOT EXCLUDE THE POSSIBILITY OF EXPOSURE TO HCV. 04/12/2022 9:29 AM CDT us Ricardo Sorto DO LABORATORY Final Re sult Performing Organization Address City/State/[place]UST Co de Phone Number [facility] [address] [place] [address], [phone] * PAP SMEAR (12/13/2021) 12/13/2021 Narrative 12/13/2021 Ordered by an unspecified provider. us Documents Scanned SCANNING Final Result from Last 3 Months or Most Recently Relevant to Health Maintenance Insurance Care Teams Hot Dip Tinning Supervisor Relationship Specialty Start Date End Date Ricardo Sorto DO NPI: [id number] [place] [id number] PCP - General FAMILY PRACTICE 04/19/22
--- NOTE | 2025-07-31 08:46 | PC.NURSE ---
This patient, Estefania Navarro, was admitted to Medical Room 346- at 0835. Patient/family oriented to hospital policies and general routines including ID bracelet, bed and alarms, visiting hours, pain management, procedures, bathroom and other care routines, personal items, smoking policy, room service/diet, and visiting hours. Information on how to activate the Rapid Response Team has been discussed. Patient/Family are encouraged to report perceived risks to care and to ask questions if they do not understand what they are told or what they should do.
[2025-07-31 10:47] LABS: Hematocrit 23.8 % (37.0-47.0); Hemoglobin 7.0 g/dL (12.0-15.0)
[2025-07-31 17:23] LABS: Hematocrit 33.5 % (37.0-47.0); Hemoglobin 10.0 g/dL (12.0-15.0)
--- OUTSIDE RECORDS SUMMARY | 2025-07-31 17:34 | XMS_ITS | Clinical Summary ---
Author Organization [facility] Address [facility] [place] [address] Care Team Providers Care Sales Systems Engineer Name Role Phone Ricardo Sorto Primary Care [...] 63) Every 5 Years 2019 PHQ-2 (Physician [place]) 10/08/2024 Cervical Cancer Screening Pa p Smear [...] PATHOLOGY GENERIC (SCAN ORDER) (07/18/2025) 07/18/2025 us [facility] Scanned SCANNING Final Resu lt * PROCEDURE GENERIC (SCAN ORDER) (07/18/2025) 07/18/2025 us [facility] Scanned SCANNING Final Resu lt * OUTSIDE LAB (SCAN ORDER) (06/03/2025) Only the most recent of2 resultswithin the time period is included. 06/03/2025 [facility] Scanned SCANNING Final Resu lt * HEPATITIS C AB ([facility] ONLY) (04/12/2022 9:29 AM CDT) HEPATITIS C AB NON-REACTI VE NON-REACT LEIGH ANN 04/12/2022 8:12 PM CDT [facility] Comment: ANTIBODIES TO HCV NOT DETECTED. DOES NOT EXCLUDE THE POSSIBILITY OF EXPOSURE TO HCV. 04/12/2022 9:29 AM CDT us Ricardo Sorto DO LABORATORY Final Re sult Performing Organization Address City/State/[facility] Co de Phone Number [facility] [address] [place] [address], [id number] * PAP SMEAR (12/13/2021) 12/13/2021 Narrative 12/13/2021 Ordered by an unspecified provider. us Documents Scanned SCANNING Final Result from Last 3 Months or Most Recently Relevant to Health Maintenance Insurance Care Teams Sales Systems Engineer Relationship Specialty Start Date End Date Ricardo Sorto DO NPI: [id number] [place] [id number] PCP - General FAMILY PRACTICE 04/19/22
--- NOTE | 2025-08-27 07:46 | PM.IMHP ---
H&P: HPI History of Present Illness Date/Time: 08/27/25 07:46 Chief Complaint: Anemia Narrative: 35-year-old female with severe anemia and was admitted for blood transfusion. She received 2 units packed red blood cells. She tolerated it well. She is discharged home Review of Systems Review of Systems: All systems reviewed & are unremarkable except as noted in HPI and below Constitutional: Constitutional: Denies chills, Denies fatigue, Denies fever(s) and Denies weakness Eyes: Eyes: Denies blurry vision, Denies change in vision, Denies loss of peripheral vision, Denies loss of vision, Denies other visual disturbances and Denies eye pain ENT: Denies vertigo, Denies dizziness, Denies hearing loss, Denies mouth pain, Denies nasal obstruction, Denies neck mass and Denies neck pain Cardiovascular: Cardiovascular: Denies chest pain, Denies diaphoresis, Denies syncope, Denies leg edema and Denies dyspnea Respiratory: Respiratory: Denies chest congestion, Denies cough, Denies hemoptysis, Denies dyspnea and Denies wheezing Gastrointestinal: Gastrointestinal: Denies abdominal pain, Denies constipation, Denies diarrhea, Denies nausea and Denies vomiting Genitourinary: Genitourinary: Denies hematuria, Denies change in libido, Denies nocturia, Denies genital lesions, Denies flank pain and Denies urinary urgency Musculoskeletal: Musculoskeletal: Denies abnormal gait, Denies back pain, Denies myalgias, Denies arthralgias, Denies joint swelling, Denies muscle weakness and Denies neck pain Integumentary/Breasts: Skin/Breast: Denies swelling, Denies breast pain, Denies breast mass, Denies dry skin, Denies nipple discharge, Denies unusual bruising and Denies jaundice Neurologic: Denies Neuro-related abnormal movements, Denies Abnormal speech present, Denies abnormal gait, Denies behavioral changes, Denies confusion, Denies vertigo, Denies dizziness, Denies syncope, Denies loss of vision, Denies memory loss, Denies convulsions and Denies weakness Psychiatric: Psychiatric: Denies abnormal sleep pattern, Denies behavioral changes, Denies change in libido, Denies confusion, Denies depression, Denies anhedonia and Denies memory loss Endocrine: Endocrine: Reports no additional endocrine complaints, Denies change in libido and Denies fatigue Hematologic/Lymphatic: Hematologic/Lymphatic: Reports no additional hematologic/lymphatic complaints Allergic/Immunologic: Allergic/Immunologic: Reports no additional allergic/immunologic complaints and Denies wheezing PMFSH Past Medical History Medical History Anxiety Hypertension Depression Surgical History Surgical History H/O eye surgery multiple Family History Family History (Updated 07/31/25 @ 08:50 by Pinky Drummond RN) Mother Asthma Diabetes mellitus Judith thyroiditis Father Colon cancer Social History Social History Smoking status: Never smoker Second hand tobacco smoke exposure: No Alcohol intake: unknown Drinks per week: 1 Substance use: never Lack of Transportation: No Lack of Food: Sometimes True Current Housing: I Have Housing Concerned About Future Housing: No Difficulty Paying Gas/Electric Bills: No Difficulty Paying for Meds: No Currently Unemployed: No Education: Bachelor's Degree Difficulty w/ Childcare or Family Care: No Spiritual care concerns: No Meds Home Medications and Allergies Home Medications ?Medication ?Instructions ?Recorded ?Confirmed ?Type bupropion HCl 150 mg tablet,12 hr 150 mg PO DAILY 12/27/21 07/31/25 History sustained-release (Wellbutrin SR) sertraline 100 mg tablet 100 mg PO DAILY 12/27/21 07/31/25 History hydroxyzine pamoate 25 mg capsule 25 mg PO DAILY PRN anxiety 07/18/25 07/31/25 History Allergies Allergy/AdvReac Type Severity Reaction Status Date / Time No Known Allergies Allergy Verified 07/31/25 08:46 Exam Const: General: cooperative, healthy appearing, comfortable and no acute distress Orientation/consciousness: oriented to person, oriented to place and oriented to time HENMT: Head: normal to inspection Ears: external ears normal Face/Nose/Sinus: Normal external nose present and normal facial exam Face and sinus: normal facial exam Eyes: General: appearance normal, both eyes and all related structures Neck: Neck: normal visual inspection, trachea midline and supple Resp: Auscultation: clear to auscultation bilaterally, no crackles, no rales, no rhonchi and no wheezes Cardio: Rate: regular rate Rhythm: regular rhythm Heart sounds: no click, no murmurs and no rubs GI: GI Palp: No abdominal tenderness, No Soft to palpation, No Tenderness to palpation present (GI) and No Palpable mass present Auscultation: normal bowel sounds Skin: General skin exam: normal color and no rashes or lesions noted Neuro: General: oriented to person, oriented to place and oriented to time Extrem: General: normal to inspection, no joint enlargement, no clubbing, cyanosis or edema, no pedal edema and no calf tenderness Psych: Appearance: grossly normal Mental Status: mental status grossly normal Speech and movement: Normal speech and movement present Assessment and Plan Assessment and plan (1) Anemia: Code(s): D64.9 - Anemia, unspecified Status: Acute Plan 35-year-old female with severe anemia and was admitted for blood transfusion. She received 2 units packed red blood cells. She tolerated it well. She is discharged home
== END 2025-07-31 17:45 | disposition home or self-care (01) ==
PROVIDERS: Admitting Provider Obstetrics & Gynecology; PCP Student in an Organized Health Care Education/Training Program; Visit Provider Obstetrics & Gynecology
DX: D64.9 Anemia, unspecified (principal); I10 Essential (primary) hypertension
CPT/HCPCS: 36415; 36430; 85014; 85018; 86850; 86900; 86901; 86923; G0378; G0379; P9016